=== PATIENT | male | born 1950 | race Caucasian/White ===

== ENCOUNTER → 2016-04-14 | Outpatient (CLI) | payer MEDICARE, BC | LOC: MW.CHUR 10:45 | PROVIDERS: ATTEND Urology | DX: R97.20 Elevated prostate specific antigen [PSA] (principal); R33.9 Retention of urine, unspecified; N42.9 Disorder of prostate, unspecified | CPT/HCPCS: 36415; 81001; 84153; G0463 ==

== ENCOUNTER 2016-05-28 17:04 | Inpatient (IN) | payer MEDICARE, BC ==
[2016-05-28] MEDS ORDERED: Sodium Chloride 0.9% 2.5 ML Syringe FLUSH PRN (17:13)
[2016-05-28] MEDS ORDERED: Alum Hydrox/Mag Hydrox/Simeth 15 ML, Metoclopramide 5 MG, Lidocaine 2% 5 ML PO ONE ×3 (17:13)
[2016-05-28] MEDS ORDERED: Sodium Chloride 0.9% 10 ML Syringe FLUSH PRN (17:13)
[2016-05-28] MEDS ORDERED: Aspirin 81 MG Tab.Chew PO ONE (17:13)
[2016-05-28] MEDS ORDERED: Ketorolac 30 MG/ML SDV IVPUSH ONE (17:13)
[2016-05-28] MEDS ORDERED: Famotidine 20 MG/2 ML SDV IVPUSH ONE (17:13)
--- NOTE | 2016-05-28 17:21 | EDM.PDOC ---
ED HPI DIZZINESS - General Chief Complaint: Syncope Stated Complaint: PASSED OUT Time Seen by Provider: 05/28/16 17:05 Source of Information: Reports: Patient, Family Exam Limitations: Reports: No limitations - History of Present Illness INITIAL COMMENTS - FREE TEXT/NARRATIVE: History of present illness: [65-year-old male with at the bedside give a history of patient with diarrhea for the last 3 days and bouts of sweating. stated that was getting in the bath and had felt dizzy he got on the toilet to have yet another bowel movement and he passed out subsequently vomiting when he did.] Review of systems: As per history of present illness and below otherwise all systems reviewed and negative. Past medical history: As per history of present illness and as reviewed below otherwise noncontributory. Surgical history: As per history of present illness and as reviewed below otherwise noncontributory. Social history: No reported history of drug or alcohol abuse. Family history: As per history of present illness and as reviewed below otherwise noncontributory. Physical exam: HEENT: Atraumatic, normocephalic, pupils reactive, negative for conjunctival pallor or scleral icterus, mucous membranes moist, throat clear, neck supple, nontender, trachea midline. Lungs: Clear to auscultation, breath sounds equal bilaterally, chest nontender. Heart: S1S2, regular, negative for clicks, rubs, or JVD. Abdomen: Soft, nondistended, nontender. Negative for masses or hepatosplenomegaly. Negative for costovertebral tenderness. Pelvis: Stable nontender. Genitourinary: Deferred. Rectal: Deferred. Extremities: Atraumatic, negative for cords or calf pain. Neurovascular unremarkable. Neuro: Awake, alert, oriented. Cranial nerves II through XII unremarkable. Cerebellum unremarkable. Motor and sensory unremarkable throughout. Exam nonfocal. Diagnostics: [CBC, CMP, troponin, EKG, chest x-ray] Therapeutics: [IV,] Impression: [Syncope, GI distress] Plan: [admit to observation telemetry] Definitive disposition and diagnosis as appropriate pending reevaluation and review of above. - Related Data Allergies/ADRs: Allergies Allergy/AdvReac Type Severity Reaction Status Date / Time diazepam [From Valium] Allergy Anxiety Verified 05/28/16 17:05 Home Meds: Home Meds Vitamin E 1,000 units PO DAILY 06/16/13 [History] Aspirin [Lo-Dose Aspirin EC] 05/28/16 [History] Cholecalciferol (Vitamin D3) [Vitamin D3] 05/28/16 [History] Lactobacillus Combination No.4 [Probiotic] 1 each PO 05/28/16 [History] Tamsulosin [Flomax] 05/28/16 [History] Ubidecarenone [COQ-10] 05/28/16 [History] Past Medical History HEENT History: Reports: Impaired vision Cardiovascular History: Reports: High cholesterol, Hypertension, Prior cardiac arrest, Stents Respiratory History: Reports: None Gastrointestinal History: Reports: None Genitourinary History: Reports: Prostate disorder Musculoskeletal History: Reports: Back pain, chronic Neurological History: Reports: None Psychiatric History: Reports: None Endocrine/Metabolic History: Reports: None Hematologic History: Reports: None Immunologic History: Reports: None Dermatologic History: Reports: None - Past Surgical History Head Surgeries/Procedures: Reports: None HEENT Surgical History: Reports: Naso-sinus surgery Neurological Surgical History: Reports: None Musculoskeletal Surgical History: Reports: Other (see below) Other Musculoskeletal Surgeries/Procedures:: back surgery Social & Family History - Family History Family Medical History: Noncontributory HEENT: Reports: None Cardiac: Reports: None Respiratory: Reports: None GI: Reports: None - Tobacco Use Smoking Status *Q: Never Smoker Second Hand Smoke Exposure: No - Caffeine Use Caffeine Use: Reports: Soda - Recreational Drug Use Recreational Drug Use: No ED ROS GENERAL - Review of Systems Review Of Systems: See Below (See history of present illness) ED EXAM, DIZZINESS - Physical Exam Exam: See Below (History of present illness) Course - Vital Signs Last Recorded V/S: Last Vital Signs Temp 36.6 C 05/28/16 17:06 Pulse 76 05/28/16 19:17 Resp 17 05/28/16 19:17 BP 119/80 05/28/16 19:17 Pulse Ox 80 L 05/28/16 19:17 - Orders/Labs/Meds Orders: Active Orders 24 hr Category Date Time Status Cardiac Monitoring [RC] . DIRECTED Care 05/28/16 17:13 Active EKG 12 Lead [EKG Documentation Completion] [RC] STAT Care 05/28/16 17:07 Active Chest 2V [CR] Stat Exams 05/28/16 17:13 Taken Head wo Cont [CT] Stat Exams 05/28/16 18:23 Taken Sodium Chloride 0.9% [Saline Flush] Med 05/28/16 17:13 Active 10 ml FLUSH ASDIRECTED PRN Sodium Chloride 0.9% [Saline Flush] Med 05/28/16 17:13 Active 2.5 ml FLUSH ASDIRECTED PRN Saline Lock Insert [OM.PC] Stat Oth 05/28/16 17:13 Ordered Medication Orders Sodium Chloride (Saline Flush) 10 ml FLUSH ASDIRECTED PRN PRN Reason: Keep Vein Open Last Admin: 05/28/16 17:30 Dose: 10 ml Sodium Chloride (Saline Flush) 2.5 ml FLUSH ASDIRECTED PRN PRN Reason: Keep Vein Open Last Admin: 05/28/16 17:31 Dose: 2.5 ml Labs: Laboratory Tests 05/28/16 05/28/16 05/28/16 Range/Units 17:27 17:27 17:27 WBC 5.27 (4.0-11.0) K/uL RBC 4.98 (4.50-5.90) M/uL Hgb 16.5 (13.0-17.0) g/dL Hct 47.2 (38.0-50.0) % MCV 94.8 (80.0-98.0) fL MCH 33.1 H (27.0-32.0) pg MCHC 35.0 (31.0-37.0) g/dL RDW Std Deviation 44.7 (28.0-62.0) fl RDW Coeff of Alondra 13 (11.0-15.0) % Plt Count 199 (150-400) K/uL MPV 11.30 (7.40-12.00) fL Neut % (Auto) 75.9 (48.0-80.0) % Lymph % (Auto) 11.4 L (16.0-40.0) % [place] % (Auto) 10.2 (0.0-15.0) % Eos % (Auto) 2.1 (0.0-7.0) % Baso % (Auto) 0.4 (0.0-1.5) % Neut # (Auto) 4.0 (1.4-5.7) K/uL Lymph # (Auto) 0.6 (0.6-2.4) K/uL [place] # (Auto) 0.5 (0.0-0.8) K/uL Eos # (Auto) 0.1 (0.0-0.7) K/uL Baso # (Auto) 0.0 (0.0-0.1) K/uL Nucleated RBC % 0.0 /100WBC Nucleated RBCs # 0 K/uL INR 1.07 (0.86-1.11) Sodium 138 (136-146) mmol/L Potassium 4.2 (3.5-5.1) mmol/L Chloride 108 (98-110) mmol/L Carbon Dioxide 19 L (21-31) mmol/L BUN 20 (6.0-23.0) mg/dL Creatinine 1.6 H (0.6-1.5) mg/dL Est Cr Clr Drug Dosing 46.37 mL/min Estimated GFR (MDRD) 43.3 ml/min Glucose 119 H (60-110) mg/dL Calcium 9.8 (8.8-10.8) mg/dL Total Bilirubin 1.3 (0.1-1.5) mg/dL AST 36 (5-40) IU/L ALT 34 (8-54) IU/L Alkaline Phosphatase 49 (40-150) Troponin I (0.0-0.29) NG/ML Total Protein 7.8 (6.0-8.0) g/dL Albumin 4.5 (3.4-4.8) g/dL Globulin 3.3 (2.0-3.5) g/dL Albumin/Globulin Ratio 1.4 (1.3-2.8) Amylase 73 (10-90) U/L Lipase 56 (7-80) U/L Urine Color Urine Appearance Urine pH (5.0-8.0) Ur Specific [place] (1.001-1.035) Urine Protein (NEGATIVE) mg/dL Urine Glucose (UA) (NEGATIVE) mg/dL Urine Ketones (NEGATIVE) mg/dL Urine Occult Blood (NEGATIVE) Urine Nitrite (NEGATIVE) Urine Bilirubin (NEGATIVE) Urine Urobilinogen (<2.0) EU/dL Ur Leukocyte Esterase (NEGATIVE) Urine RBC (0-2/HPF) Urine WBC (0-5/HPF) Ur Epithelial Cells (NONE-FEW) Urine Bacteria (NEGATIVE) 05/28/16 05/28/16 Range/Units 17:27 18:50 WBC (4.0-11.0) K/uL RBC (4.50-5.90) M/uL Hgb (13.0-17.0) g/dL Hct (38.0-50.0) % MCV (80.0-98.0) fL MCH (27.0-32.0) pg MCHC (31.0-37.0) g/dL RDW Std Deviation (28.0-62.0) fl RDW Coeff of Alondra (11.0-15.0) % Plt Count (150-400) K/uL MPV (7.40-12.00) fL Neut % (Auto) (48.0-80.0) % Lymph % (Auto) (16.0-40.0) % [place] % (Auto) (0.0-15.0) % Eos % (Auto) (0.0-7.0) % Baso % (Auto) (0.0-1.5) % Neut # (Auto) (1.4-5.7) K/uL Lymph # (Auto) (0.6-2.4) K/uL [place] # (Auto) (0.0-0.8) K/uL Eos # (Auto) (0.0-0.7) K/uL Baso # (Auto) (0.0-0.1) K/uL Nucleated RBC % /100WBC Nucleated RBCs # K/uL INR (0.86-1.11) Sodium (136-146) mmol/L Potassium (3.5-5.1) mmol/L Chloride (98-110) mmol/L Carbon Dioxide (21-31) mmol/L BUN (6.0-23.0) mg/dL Creatinine (0.6-1.5) mg/dL Est Cr Clr Drug Dosing mL/min Estimated GFR (MDRD) ml/min Glucose (60-110) mg/dL Calcium (8.8-10.8) mg/dL Total Bilirubin (0.1-1.5) mg/dL AST (5-40) IU/L ALT (8-54) IU/L Alkaline Phosphatase (40-150) Troponin I < 0.10 (0.0-0.29) NG/ML Total Protein (6.0-8.0) g/dL Albumin (3.4-4.8) g/dL Globulin (2.0-3.5) g/dL Albumin/Globulin Ratio (1.3-2.8) Amylase (10-90) U/L Lipase (7-80) U/L Urine Color YELLOW Urine Appearance CLEAR Urine pH 6.0 (5.0-8.0) Ur Specific [place] 1.015 (1.001-1.035) Urine Protein NEGATIVE (NEGATIVE) mg/dL Urine Glucose (UA) NEGATIVE (NEGATIVE) mg/dL Urine Ketones NEGATIVE (NEGATIVE) mg/dL Urine Occult Blood SMALL H (NEGATIVE) Urine Nitrite NEGATIVE (NEGATIVE) Urine Bilirubin NEGATIVE (NEGATIVE) Urine Urobilinogen 0.2 (<2.0) EU/dL Ur Leukocyte Esterase TRACE (NEGATIVE) Urine RBC 1-3 (0-2/HPF) Urine WBC 2-3 (0-5/HPF) Ur Epithelial Cells FEW (NONE-FEW) Urine Bacteria FEW (NEGATIVE) Meds: Medications Generic Name Dose Route Start Last Admin Trade Name [place] PRN Reason Stop Dose Admin Sodium Chloride 10 ml 05/28/16 17:13 05/28/16 17:30 Saline Flush FLUSH 10 ml ASDIRECTED PRN Administration Keep Vein Open Sodium Chloride 2.5 ml 05/28/16 17:13 05/28/16 17:31 Saline Flush FLUSH 2.5 ml ASDIRECTED PRN Administration Keep Vein Open Discontinued Medications Generic Name Dose Route Start Last Admin Trade Name Aramis PRN Reason Stop Dose Admin Aspirin 324 mg 05/28/16 17:13 05/28/16 17:26 Aspirin PO 05/28/16 17:14 243 mg ONETIME ONE Administration Al Hydroxide/Mg Hydroxide 15 0 ml 05/28/16 17:13 05/28/16 17:26 ml/ Metoclopramide HCl 5 mg/ PO 05/28/16 17:14 1 each Lidocaine HCl 5 ml ONETIME ONE Administration Famotidine 20 mg 05/28/16 17:13 05/28/16 17:28 Pepcid IVPUSH 05/28/16 17:14 20 mg ONETIME ONE Administration Sodium Chloride 1,000 mls @ 999 mls/hr 05/28/16 17:36 05/28/16 17:39 Normal Saline IV 05/28/16 18:36 999 mls/hr .Bolus ONE Administration Ketorolac Tromethamine 30 mg 05/28/16 17:13 05/28/16 17:26 Toradol IVPUSH 05/28/16 17:14 30 mg ONETIME ONE Administration Simethicone 160 mg 05/28/16 19:53 Simethicone PO 05/28/16 19:54 ONETIME ONE Departure - Departure Time of Disposition: 20:10 Disposition: Admitted As Inpatient 64 Condition: good Clinical Impression: Syncope Forms: ED Department Discharge - My Orders Last 24 Hours: My Active Orders 05/28/16 17:07 EKG 12 Lead [EKG Documentation Completion] [RC] STAT 05/28/16 17:13 Cardiac Monitoring [RC] . DIRECTED Chest 2V [CR] Stat Sodium Chloride 0.9% [Saline Flush] 10 ml FLUSH ASDIRECTED PRN Sodium Chloride 0.9% [Saline Flush] 2.5 ml FLUSH ASDIRECTED PRN Saline Lock Insert [OM.PC] Stat 05/28/16 18:23 Head wo Cont [CT] Stat - Assessment/Plan Last 24 Hours: My Active Orders 05/28/16 17:07 EKG 12 Lead [EKG Documentation Completion] [RC] STAT 05/28/16 17:13 Cardiac Monitoring [RC] . DIRECTED Chest 2V [CR] Stat Sodium Chloride 0.9% [Saline Flush] 10 ml FLUSH ASDIRECTED PRN Sodium Chloride 0.9% [Saline Flush] 2.5 ml FLUSH ASDIRECTED PRN Saline Lock Insert [OM.PC] Stat 05/28/16 18:23 Head wo Cont [CT] Stat
[2016-05-28] MEDS ORDERED: Sodium Chloride 0.9% 1,000 ML IV ONE (17:36)
[2016-05-28] MEDS ORDERED: Simethicone 80 MG Tab.Chew PO ONE (19:53)
--- NOTE | 2016-05-28 20:39 | PCM.HP ---
H&P History of Present Illness - General Date of Service: 05/28/16 Admit Problem/Dx: Admission Diagnosis/Problem Admission Diagnosis/Problem Syncope Source of Information: Patient, Provider, RN - History of Present Illness Initial Comments - Free Text/Narative: This man presented to the emergency department today. When he was at home he was on the toilet his heard a crash. She went in and he had fainted and he was on the floor. He does not remember fainting he just Bement is being on the toilet and had been on before. He does not think he hit his head. He does not have a headache. He has no obvious or apparent are suspected significant injury. He is had a watery stools all day. He has had more than 10 bowel movements today. He states sometimes he'll have bowel movements and intervals of 15 or 20 minutes. He has lower abdominal cramping. He had some chills. His noted his temperature was about 100 Fahrenheit. No respiratory complaints. No chest pain. He was seen in the emergency department and recommended for admission to the hospital. - Related Data Allergies/Adverse Reactions: Allergies Allergy/AdvReac Type Severity Reaction Status Date / Time diazepam [From Valium] Allergy Anxiety Verified 05/28/16 17:05 Home Medications: Home Meds Vitamin E 1,000 units PO DAILY 06/16/13 [History] Aspirin [Lo-Dose Aspirin EC] 05/28/16 [History] Cholecalciferol (Vitamin D3) [Vitamin D3] 05/28/16 [History] Lactobacillus Combination No.4 [Probiotic] 1 each PO 05/28/16 [History] Tamsulosin [Flomax] 05/28/16 [History] Ubidecarenone [COQ-10] 05/28/16 [History] Past Medical History HEENT History: Reports: Impaired vision Cardiovascular History: Reports: CAD, MD, Prior cardiac arrest, Stents Respiratory History: Reports: None. Denies: COPD Gastrointestinal History: Reports: None. Denies: Cirrhosis Genitourinary History: Reports: Prostate disorder Musculoskeletal History: Reports: Back pain, chronic Neurological History: Reports: None Psychiatric History: Reports: None Endocrine/Metabolic History: Reports: None. Denies: Norvell's disease, Diabetes , type II Hematologic History: Reports: None Immunologic History: Reports: None Oncologic (Cancer) History: Reports: None Dermatologic History: Reports: None - Past Surgical History Head Surgeries/Procedures: Reports: None HEENT Surgical History: Reports: Naso-sinus surgery Neurological Surgical History: Reports: None Musculoskeletal Surgical History: Reports: Other (see below) Other Musculoskeletal Surgeries/Procedures:: back surgery Social & Family History - Family History Family Medical History: Noncontributory HEENT: Reports: None Cardiac: Reports: None Respiratory: Reports: None GI: Reports: None - Tobacco Use Smoking Status *Q: Never Smoker Second Hand Smoke Exposure: No - Caffeine Use Caffeine Use: Reports: Soda - Alcohol Use Alcohol Use Comment: He drinks about 2 times per month. He never has more than 3 drinks per day. - Recreational Drug Use Recreational Drug Use: No H&P Review of Systems - Review of Systems: Review Of Systems: See Below General: Reports: fever, chills Pulmonary: Denies: Shortness of Breath, Cough, Sputum Cardiovascular: Denies: chest pain, palpitations Gastrointestinal: Reports: Abdominal pain, Decreased appetite, Flatus. Denies: Black stool, Bloody stool, Hematemesis, Nausea Genitourinary: Denies: dysuria, frequency, burning, pain, hematuria, penile discharge Skin: Denies: cyanosis Psychiatric: Denies: agitation Exam - Exam Exam: See Below - Vital Signs Vital Signs: Last Vital Signs Temp 97.9 F 05/28/16 17:06 Pulse 76 05/28/16 19:17 Resp 17 05/28/16 19:17 BP 119/80 05/28/16 19:17 Pulse Ox 80 L 05/28/16 19:17 Weight: 85.9 kg - Exam General: alert, oriented HEENT: Conjunctiva clear Neck: supple, trachea midline, other (No C-spine pain or pain with motion). No : JVD Lungs: Clear to auscultation, Normal respiratory effort. No: Crackles, Rales, Rhonchi Cardiovascular: regular rate, regular rhythm, normal S1, normal S2. No: systolic murmur, diastolic murmur Abdomen: normal bowel sounds, soft, tenderness (Mild periumbilical tenderness no rebound tenderness) (Male) Exam: Deferred Rectal (Males) Exam: Deferred Extremities: other ([place] refill in toes of both feet equals about 4 seconds.) . No: edema Neurological: cranial nerves intact, normal speech Neuro Extensive - Motor, Sensory, Reflexes: CN II-XII intact Psychiatric: alert. No: agitated - Patient Data Lab Results last 24 hrs: Laboratory Results - last 24 hr 05/28/16 05/28/16 05/28/16 Range/Units 17:27 17:27 17:27 WBC 5.27 (4.0-11.0) K/uL RBC 4.98 (4.50-5.90) M/uL Hgb 16.5 (13.0-17.0) g/dL Hct 47.2 (38.0-50.0) % MCV 94.8 (80.0-98.0) fL MCH 33.1 H (27.0-32.0) pg MCHC 35.0 (31.0-37.0) g/dL RDW Std Deviation 44.7 (28.0-62.0) fl RDW Coeff of Alondra 13 (11.0-15.0) % Plt Count 199 (150-400) K/uL MPV 11.30 (7.40-12.00) fL Neut % (Auto) 75.9 (48.0-80.0) % Lymph % (Auto) 11.4 L (16.0-40.0) % [place] % (Auto) 10.2 (0.0-15.0) % Eos % (Auto) 2.1 (0.0-7.0) % Baso % (Auto) 0.4 (0.0-1.5) % Neut # (Auto) 4.0 (1.4-5.7) K/uL Lymph # (Auto) 0.6 (0.6-2.4) K/uL [place] # (Auto) 0.5 (0.0-0.8) K/uL Eos # (Auto) 0.1 (0.0-0.7) K/uL Baso # (Auto) 0.0 (0.0-0.1) K/uL Nucleated RBC % 0.0 /100WBC Nucleated RBCs # 0 K/uL INR 1.07 (0.86-1.11) Sodium 138 (136-146) mmol/L Potassium 4.2 (3.5-5.1) mmol/L Chloride 108 (98-110) mmol/L Carbon Dioxide 19 L (21-31) mmol/L BUN 20 (6.0-23.0) mg/dL Creatinine 1.6 H (0.6-1.5) mg/dL Est Cr Clr Drug Dosing 46.37 mL/min Estimated GFR (MDRD) 43.3 ml/min Glucose 119 H (60-110) mg/dL Calcium 9.8 (8.8-10.8) mg/dL Total Bilirubin 1.3 (0.1-1.5) mg/dL AST 36 (5-40) IU/L ALT 34 (8-54) IU/L Alkaline Phosphatase 49 (40-150) Troponin I (0.0-0.29) NG/ML Total Protein 7.8 (6.0-8.0) g/dL Albumin 4.5 (3.4-4.8) g/dL Globulin 3.3 (2.0-3.5) g/dL Albumin/Globulin Ratio 1.4 (1.3-2.8) Amylase 73 (10-90) U/L Lipase 56 (7-80) U/L Urine Color Urine Appearance Urine pH (5.0-8.0) Ur Specific [place] (1.001-1.035) Urine Protein (NEGATIVE) mg/dL Urine Glucose (UA) (NEGATIVE) mg/dL Urine Ketones (NEGATIVE) mg/dL Urine Occult Blood (NEGATIVE) Urine Nitrite (NEGATIVE) Urine Bilirubin (NEGATIVE) Urine Urobilinogen (<2.0) EU/dL Ur Leukocyte Esterase (NEGATIVE) Urine RBC (0-2/HPF) Urine WBC (0-5/HPF) Ur Epithelial Cells (NONE-FEW) Urine Bacteria (NEGATIVE) 05/28/16 05/28/16 Range/Units 17:27 18:50 WBC (4.0-11.0) K/uL RBC (4.50-5.90) M/uL Hgb (13.0-17.0) g/dL Hct (38.0-50.0) % MCV (80.0-98.0) fL MCH (27.0-32.0) pg MCHC (31.0-37.0) g/dL RDW Std Deviation (28.0-62.0) fl RDW Coeff of Alondra (11.0-15.0) % Plt Count (150-400) K/uL MPV (7.40-12.00) fL Neut % (Auto) (48.0-80.0) % Lymph % (Auto) (16.0-40.0) % [place] % (Auto) (0.0-15.0) % Eos % (Auto) (0.0-7.0) % Baso % (Auto) (0.0-1.5) % Neut # (Auto) (1.4-5.7) K/uL Lymph # (Auto) (0.6-2.4) K/uL [place] # (Auto) (0.0-0.8) K/uL Eos # (Auto) (0.0-0.7) K/uL Baso # (Auto) (0.0-0.1) K/uL Nucleated RBC % /100WBC Nucleated RBCs # K/uL INR (0.86-1.11) Sodium (136-146) mmol/L Potassium (3.5-5.1) mmol/L Chloride (98-110) mmol/L Carbon Dioxide (21-31) mmol/L BUN (6.0-23.0) mg/dL Creatinine (0.6-1.5) mg/dL Est Cr Clr Drug Dosing mL/min Estimated GFR (MDRD) ml/min Glucose (60-110) mg/dL Calcium (8.8-10.8) mg/dL Total Bilirubin (0.1-1.5) mg/dL AST (5-40) IU/L ALT (8-54) IU/L Alkaline Phosphatase (40-150) Troponin I < 0.10 (0.0-0.29) NG/ML Total Protein (6.0-8.0) g/dL Albumin (3.4-4.8) g/dL Globulin (2.0-3.5) g/dL Albumin/Globulin Ratio (1.3-2.8) Amylase (10-90) U/L Lipase (7-80) U/L Urine Color YELLOW Urine Appearance CLEAR Urine pH 6.0 (5.0-8.0) Ur Specific [place] 1.015 (1.001-1.035) Urine Protein NEGATIVE (NEGATIVE) mg/dL Urine Glucose (UA) NEGATIVE (NEGATIVE) mg/dL Urine Ketones NEGATIVE (NEGATIVE) mg/dL Urine Occult Blood SMALL H (NEGATIVE) Urine Nitrite NEGATIVE (NEGATIVE) Urine Bilirubin NEGATIVE (NEGATIVE) Urine Urobilinogen 0.2 (<2.0) EU/dL Ur Leukocyte Esterase TRACE (NEGATIVE) Urine RBC 1-3 (0-2/HPF) Urine WBC 2-3 (0-5/HPF) Ur Epithelial Cells FEW (NONE-FEW) Urine Bacteria FEW (NEGATIVE) Result Diagrams: 05/28/16 17:27 05/28/16 17:27 *Q Meaningful Use (ADM) - VTE *Q VTE Criteria *Q: - Stroke *Q Stroke Criteria *Q: - AMI *Q AMI Criteria *Q: - Problem List (1) Hypovolemic shock SNOMED Code(s): 62501453 ICD Code: R57.1 - HYPOVOLEMIC SHOCK Status: Acute Current Visit: Yes (2) Syncope SNOMED Code(s): 575331534 ICD Code: R55 - SYNCOPE AND COLLAPSE Status: Acute Current Visit: Yes Problem List Initiated/Reviewed/Updated: Yes Orders Last 24hrs: Active Orders 24 hr Category Date Time Status Patient Status [ADT] Stat ADT 05/28/16 20:10 Active Cardiac Monitoring [RC] . DIRECTED Care 05/28/16 17:13 Active EKG 12 Lead [EKG Documentation Completion] [RC] STAT Care 05/28/16 17:07 Active Chest 2V [CR] Stat Exams 05/28/16 17:13 Taken Head wo Cont [CT] Stat Exams 05/28/16 18:23 Taken CULTURE URINE [RM] Stat Lab 05/28/16 20:30 Uncollected Sodium Chloride 0.9% [Saline Flush] Med 05/28/16 17:13 Active 10 ml FLUSH ASDIRECTED PRN Sodium Chloride 0.9% [Saline Flush] Med 05/28/16 17:13 Active 2.5 ml FLUSH ASDIRECTED PRN Saline Lock Insert [OM.PC] Stat Oth 05/28/16 17:13 Ordered Medication Orders Sodium Chloride (Saline Flush) 10 ml FLUSH ASDIRECTED PRN PRN Reason: Keep Vein Open Last Admin: 05/28/16 17:30 Dose: 10 ml Sodium Chloride (Saline Flush) 2.5 ml FLUSH ASDIRECTED PRN PRN Reason: Keep Vein Open Last Admin: 05/28/16 17:31 Dose: 2.5 ml Assessment/Plan Comment:: aggressive IVF hydration monitor lab close monitoring. I believe that he has hypovolemic shock as evidenced by impaired capillary refill in his toes. See orders.
[2016-05-28] MEDS ORDERED: Ondansetron 4 MG/2 ML SDV IVPUSH PRN (20:41)
[2016-05-28] MEDS ORDERED: Morphine 4 MG/ML Syringe IVPUSH PRN (20:41)
[2016-05-28] MEDS ORDERED: Temazepam 15 MG Cap PO PRN (20:41)
[2016-05-28] MEDS: Sodium Chloride 0.9% 1,000 ML IV SCH (21:23)
[2016-05-29] MEDS: Sodium Chloride 0.9% 1,000 ML IV SCH ×4 (02:15→19:34)
[2016-05-29] MEDS: Azithromycin 500 MG in Sodium Chloride 0.9% 250 ML IV SCH (02:22)
[2016-05-29] MEDS: Acetaminophen 325 MG Tab PO PRN ×4 (03:05→19:34)
[2016-05-29] MEDS ORDERED: Famotidine 20 MG/2 ML SDV IVPUSH SCH ×2 (09:00→09:25)
[2016-05-29] MEDS ORDERED: Sodium Chloride 0.9% 1,000 ML IV SCH (09:30)
[2016-05-29] MEDS: Famotidine 20 MG/2 ML SDV IVPUSH SCH ×2 (09:46→21:08)
--- NOTE | 2016-05-29 09:48 | PCM.PN ---
- General Info Date of Service: 05/29/16 Admission Dx/Problem (Free Text): Admission Diagnosis/Problem Admission Diagnosis/Problem Syncope Subjective Update: Patient continues to have frequent BM's. He has no pain with his bowel movements and there is no blood noted. He is beginning to to have some lower abdominal cramping which was present yesterday as well. Morphine is available for pain relief. Stool is positive for Campylobacter. He is on Azithromycin 500mg IV daily. He denies any chest pain, N/V, shortness of breath. Functional Status: Reports: pain controlled, ambulating, urinating - Review of Systems General: Reports: Weakness HEENT: Reports: no symptoms Pulmonary: Reports: no symptoms Cardiovascular: Reports: No Symptoms Gastrointestinal: Reports: Abdominal pain (lower), Diarrhea. Denies: Nausea, Vomiting Genitourinary: Reports: no symptoms Musculoskeletal: Reports: no symptoms Skin: Reports: no symptoms Neurological: Reports: No Symptoms Psychiatric: Reports: no symptoms - Patient Data Vitals - most recent: Last Vital Signs Temp 100.2 F 05/29/16 06:00 Pulse 76 05/28/16 19:17 Resp 19 05/29/16 09:00 BP 143/86 H 05/29/16 09:00 Pulse Ox 100 05/29/16 09:00 Weight - most recent: 183 lb 13.848 oz I&O - last 24 hours: Intake & Output 05/28/16 05/29/16 05/29/16 22:59 06:59 14:59 Intake Total 1700 Output Total 475 Balance 1225 Lab Results last 24 hrs: Laboratory Results - last 24 hr 05/29/16 05/29/16 05/29/16 Range/Units 02:17 02:17 02:17 WBC 5.18 (4.0-11.0) K/uL RBC 4.57 (4.50-5.90) M/uL Hgb 15.0 (13.0-17.0) g/dL Hct 43.3 (38.0-50.0) % MCV 94.7 (80.0-98.0) fL MCH 32.8 H (27.0-32.0) pg MCHC 34.6 (31.0-37.0) g/dL RDW Std Deviation 43.0 (28.0-62.0) fl RDW Coeff of Alondra 13 (11.0-15.0) % Plt Count 189 (150-400) K/uL MPV 11.30 (7.40-12.00) fL Add Manual Diff YES Neutrophils % (Manual) 70 (48.0-80.0) % Band Neutrophils % 5 % Lymphocytes % (Manual) 9 L (16.0-40.0) % Monocytes % (Manual) 15 (0.0-15.0) % Basophils % (Manual) 1 (0.0-1.5) % Absolute Seg Neuts 3.6 Band Neutrophils # 0.3 Lymphocytes # (Manual) 0.5 Monocytes # (Manual) 0.8 Basophils # (Manual) 0 Sodium 138 (136-146) mmol/L Potassium 4.5 (3.5-5.1) mmol/L Chloride 111 H (98-110) mmol/L Carbon Dioxide 19 L (21-31) mmol/L BUN 23 (6.0-23.0) mg/dL Creatinine 1.4 (0.6-1.5) mg/dL Est Cr Clr Drug Dosing 52.87 mL/min Estimated GFR (MDRD) 50.5 ml/min Glucose 98 (60-110) mg/dL Calcium 8.9 (8.8-10.8) mg/dL Magnesium 1.9 (1.5-2.3) mEq/L Total Bilirubin 0.9 (0.1-1.5) mg/dL AST 37 (5-40) IU/L ALT 34 (8-54) IU/L Alkaline Phosphatase 42 (40-150) Troponin I < 0.10 (0.0-0.29) NG/ML Total Protein 6.8 (6.0-8.0) g/dL Albumin 4.0 (3.4-4.8) g/dL Globulin 2.8 (2.0-3.5) g/dL Albumin/Globulin Ratio 1.4 (1.3-2.8) Zen Results last 24 hrs: Microbiology 05/28/16 23:50 Clostridium difficile Toxin A&B (M) - Final Stool / Feces Negative for C.Diff Toxin/AG 05/28/16 23:50 Campylobacter Antigen Assay - Final Stool / Feces Positive Campylobacter Ag 05/28/16 23:50 Stool for WBCs - Final Stool / Feces POSITIVE FOR WBC'S Med Orders - Current: Current Medications Acetaminophen (Tylenol) 650 mg PO Q4H PRN PRN Reason: Pain (Mild 1-3)/fever Last Admin: 05/29/16 09:21 Dose: 650 mg Famotidine (Pepcid) 10 mg IVPUSH BID [facility] Sodium Chloride (Normal Saline) 1,000 mls @ 200 mls/hr IV ASDIRECTED [facility] Last Admin: 05/29/16 08:21 Dose: 200 mls/hr Azithromycin 500 mg/ Sodium (Chloride) 250 mls @ 250 mls/hr IV Q24H [facility] Stop: 05/31/16 03:14 Last Admin: 05/29/16 02:22 Dose: 250 mls/hr Sodium Chloride (Normal Saline) 1,000 mls @ 999 mls/hr IV ASDIRECTED [facility] Morphine Sulfate (Morphine) 4 mg IVPUSH Q1H PRN PRN Reason: Pain (severe 7-10) Stop: 05/29/16 20:43 Ondansetron HCl (Zofran) 4 mg IVPUSH Q4H PRN PRN Reason: Nausea Sodium Chloride (Saline Flush) 10 ml FLUSH ASDIRECTED PRN PRN Reason: Keep Vein Open Last Admin: 05/28/16 17:30 Dose: 10 ml Sodium Chloride (Saline Flush) 2.5 ml FLUSH ASDIRECTED PRN PRN Reason: Keep Vein Open Last Admin: 05/28/16 17:31 Dose: 2.5 ml Tamsulosin HCl (Flomax) 0.4 mg PO PCBREAKFAST [facility] Temazepam (Restoril) 15 mg PO BEDTIME PRN PRN Reason: Sleep Discontinued Medications Aspirin (Aspirin) 324 mg PO ONETIME ONE Stop: 05/28/16 17:14 Last Admin: 05/28/16 17:26 Dose: 243 mg Al Hydroxide/Mg Hydroxide 15 ml/ Metoclopramide HCl 5 mg/Lidocaine HCl 5 ml 0 ml PO ONETIME ONE Stop: 05/28/16 17:14 Last Admin: 05/28/16 17:26 Dose: 1 each Famotidine (Pepcid) 20 mg IVPUSH ONETIME ONE Stop: 05/28/16 17:14 Last Admin: 05/28/16 17:28 Dose: 20 mg Famotidine (Pepcid) 20 mg IVPUSH BID [facility] Famotidine (Pepcid) 10 mg IVPUSH BID [facility] Sodium Chloride (Normal Saline) 1,000 mls @ 999 mls/hr IV .Bolus ONE Stop: 05/28/16 18:36 Last Admin: 05/28/16 17:39 Dose: 999 mls/hr Ketorolac Tromethamine (Toradol) 30 mg IVPUSH ONETIME ONE Stop: 05/28/16 17:14 Last Admin: 05/28/16 17:26 Dose: 30 mg Simethicone (Simethicone) 160 mg PO ONETIME ONE Stop: 05/28/16 19:54 Last Admin: 05/28/16 20:24 Dose: 160 mg - Exam Quality Assessment: DVT prophylaxis (SCD's) General: alert, oriented, cooperative, no acute distress Neck: supple Lungs: Clear to auscultation, Normal respiratory effort Cardiovascular: Regular Rate, Regular Rhythm Abdomen: bowel sounds present, soft, no tenderness, no distension Extremities: no edema, no calf tenderness Peripheral Pulses: 2+: radial (L), radial (R) Skin: warm, dry, intact, other (slow capillary refill) Neurological: no new focal deficit Psy/Mental Status: alert, normal affect, normal mood - Problem List & Annotations (1) Campylobacter diarrhea SNOMED Code(s): 17577140 Code(s): A04.5 - CAMPYLOBACTER ENTERITIS Status: Acute Current Visit: Yes (2) Syncope SNOMED Code(s): 264463378 Code(s): R55 - SYNCOPE AND COLLAPSE Status: Acute Current Visit: Yes - Problem List Review Problem List Initiated/Reviewed/Updated: Yes - My Orders Last 24 Hours: My Active Orders 05/29/16 09:30 Sodium Chloride 0.9% [Normal Saline] 1,000 ml IV ASDIRECTED 05/29/16 09:45 Famotidine [Pepcid] 10 mg IVPUSH BID 05/29/16 10:00 Tamsulosin [Flomax] 0.4 mg PO PCBREAKFAST - Plan Plan:: 1. Diarrhea secondary to Campylobacter: -Continue azithromycin 500mg IV daily -Pepcid 10mg BID -NS @ 200cc/hr -will receive a 1L NS bolus today -Morphine available for pain relief. -clear liquid diet Disposition: 1-2 days pending improvement
--- NOTE | 2016-05-29 09:56 | CR ---
EXAM DATE: 05/28/16 PATIENT'S AGE: 65 Patient: KARTHIKEYAN ANN Facility: [place], [place] Site . Site : 1950 Study: XRay Chest [id number]/19/2017 6:01:56 PM Ordering Physician: Doctor Sy Final Report: INDICATIONS: Syncopal episode. TECHNIQUE: Chest 2 view. COMPARISON: Chest radiograph April 11, 2010. FINDINGS: No pneumothorax or pleural effusion. Lungs are clear. Calcified mediastinal nodes consistent with prior granulomatous disease as before. The cardiac and mediastinal contours are otherwise within normal limits. Upper abdomen and osseous structures show no acute abnormality. IMPRESSION: No acute cardiopulmonary disease. Dictated by Kin Rucker MD @ 05/28/2016 6:05:28 PM Dictated by: Kin Rucker MD @ 05/28/2016 18:05:42 (Electronic Signature) Report Signed by Proxy and Original Signed Document filed in the Medical Record. [place]
--- NOTE | 2016-05-29 09:59 | CT ---
EXAM DATE: 05/28/16 PATIENT'S AGE: 65 Patient: KARTHIKEYAN ANN Facility: [place], [place] Site . Site : 1950 Study: CT Head [id number]/19/2017 7:25:05 PM Ordering Physician: Doctor Sy Final Report: INDICATIONS: Syncope. Hit head. Recent sinus pressure. TECHNIQUE: CT head without contrast. COMPARISON: None FINDINGS: No mass effect or midline shift. No hydrocephalus. No CT evidence of acute hemorrhage or infarction. No abnormal extra-axial fluid collection. Bone windows show no acute abnormality. Visualized paranasal sinuses and orbits are unremarkable. IMPRESSION: No acute intracranial abnormality. Dictated by Kin Rucker MD @ 05/28/2016 7:48:51 PM Dictated by: Kin Rucker MD @ 05/28/2016 19:48:59 (Electronic Signature) Report Signed by Proxy and Original Signed Document filed in the Medical Record. [facility]
[2016-05-29] MEDS ORDERED: Tamsulosin 0.4 MG Cap.ER PO SCH (10:00)
[2016-05-29] MEDS ORDERED: Morphine 4 MG/ML Syringe IVPUSH PRN (14:21)
[2016-05-29] MEDS ORDERED: Alum Hydrox/Mag Hydrox/Simeth 15 ML, Metoclopramide 5 MG, Lidocaine 2% 5 ML PO ONE ×3 (14:23)
[2016-05-29] MEDS ORDERED: Metoprolol Tartrate 5 MG/5 ML SDV IVPUSH PRN (14:24)
[2016-05-29] MEDS: Fluticasone Propionate Nasal Spray 16 GM Bottle NASBOTH SCH ×2 (14:30→21:09)
[2016-05-29] MEDS: Simethicone 80 MG Tab.Chew PO PRN ×3 (14:30→22:00)
[2016-05-29] MEDS: Loperamide 2 MG Cap PO PRN ×2 (21:59→23:24)
[2016-05-30] MEDS: Sodium Chloride 0.9% 1,000 ML IV SCH ×4 (00:37→18:07)
[2016-05-30] MEDS: Azithromycin 500 MG in Sodium Chloride 0.9% 250 ML IV SCH (02:06)
[2016-05-30] MEDS: Simethicone 80 MG Tab.Chew PO PRN ×2 (02:06→14:49)
[2016-05-30] MEDS: Loperamide 2 MG Cap PO PRN ×3 (02:06→20:30)
[2016-05-30] MEDS: Acetaminophen 325 MG Tab PO PRN ×3 (05:06→22:56)
[2016-05-30 05:10] LABS: CHLORIDE,CL 114 mmol/L (98-110); SODIUM,NA 137 mmol/L (136-146)
[2016-05-30] MEDS: Famotidine 20 MG/2 ML SDV IVPUSH SCH ×2 (08:39→20:28)
[2016-05-30] MEDS: Aspirin 81 MG Tab.EC PO SCH (08:39)
[2016-05-30] MEDS: Calcium Citrate 950 MG Tab PO SCH (08:39)
[2016-05-30] MEDS: Fluticasone Propionate Nasal Spray 16 GM Bottle NASBOTH SCH ×2 (08:44→20:33)
[2016-05-30] MEDS ORDERED: Sodium Chloride 0.9% 1,000 ML IV ONE (08:46)
--- NOTE | 2016-05-30 09:31 | PCM.PN ---
- General Info Date of Service: 05/30/16 Admission Dx/Problem (Free Text): Admission Diagnosis/Problem Admission Diagnosis/Problem Syncope Subjective Update: Patient is feeling better this morning. He's had some lower abdominal cramping but this is relieved with simethicone every 4 hours as needed. He did have 9 loose stools yesterday without any blood. He was given Imodium and frequency of his stools has decreased. He has no pain with defecation. Patient did have a fever this morning but got Tylenol which resolved his fever. He is tolerating oral intake and does not complain of any nausea or vomiting. His diet will be advanced as tolerated from clear liquids. He continues on normal saline at 200 cc/hour. He also continues on azithromycin 500 mg IV daily. Patient denies any other acute concerns including headache, dizziness, chest pain, palpitations, shortness of breath, wheezing, cough. Functional Status: Reports: pain controlled, tolerating diet, ambulating, urinating - Review of Systems General: Reports: Weakness, Fatigue HEENT: Reports: no symptoms Pulmonary: Reports: no symptoms Cardiovascular: Reports: No Symptoms Gastrointestinal: Reports: Abdominal pain (Lower portion of the abdomen, improving.), Diarrhea (Less frequent). Denies: Nausea, Vomiting Genitourinary: Reports: no symptoms Musculoskeletal: Reports: no symptoms Skin: Reports: no symptoms Neurological: Reports: No Symptoms Psychiatric: Reports: no symptoms - Patient Data Vitals - most recent: Last Vital Signs Temp 99.9 F 05/30/16 08:00 Pulse 74 05/30/16 07:00 Resp 15 05/30/16 08:00 BP 113/69 05/30/16 08:00 Pulse Ox 96 05/30/16 08:00 Weight - most recent: 183 lb 13.848 oz I&O - last 24 hours: Intake & Output 05/29/16 05/30/16 05/30/16 22:59 06:59 14:59 Intake Total 2300 3350 Output Total 225 1595 Balance 2075 1755 Lab Results last 24 hrs: Laboratory Results - last 24 hr 05/30/16 05/30/16 Range/Units 04:48 04:48 WBC 7.37 (4.0-11.0) K/uL RBC 4.02 L (4.50-5.90) M/uL Hgb 13.0 (13.0-17.0) g/dL Hct 38.5 (38.0-50.0) % MCV 95.8 (80.0-98.0) fL MCH 32.3 H (27.0-32.0) pg MCHC 33.8 (31.0-37.0) g/dL RDW Std Deviation 46.3 (28.0-62.0) fl RDW Coeff of Alondra 13 (11.0-15.0) % Plt Count 142 L (150-400) K/uL MPV 11.10 (7.40-12.00) fL Neut % (Auto) 67.1 (48.0-80.0) % Lymph % (Auto) 21.7 (16.0-40.0) % [place] % (Auto) 11.0 (0.0-15.0) % Eos % (Auto) 0.1 (0.0-7.0) % Baso % (Auto) 0.1 (0.0-1.5) % Neut # (Auto) 4.9 (1.4-5.7) K/uL Lymph # (Auto) 1.6 (0.6-2.4) K/uL [place] # (Auto) 0.8 (0.0-0.8) K/uL Eos # (Auto) 0.0 (0.0-0.7) K/uL Baso # (Auto) 0.0 (0.0-0.1) K/uL Nucleated RBC % 0.0 /100WBC Nucleated RBCs # 0 K/uL Sodium 137 (136-146) mmol/L Potassium 3.8 (3.5-5.1) mmol/L Chloride 114 H (98-110) mmol/L Carbon Dioxide 16 L (21-31) mmol/L BUN 11 (6.0-23.0) mg/dL Creatinine 1.0 (0.6-1.5) mg/dL Est Cr Clr Drug Dosing 74.01 mL/min Estimated GFR (MDRD) > 60.0 ml/min Glucose 81 (60-110) mg/dL Calcium 7.3 L (8.8-10.8) mg/dL Magnesium 1.6 (1.5-2.3) mEq/L Total Bilirubin 0.6 (0.1-1.5) mg/dL AST 29 (5-40) IU/L ALT 25 (8-54) IU/L Alkaline Phosphatase 32 L (40-150) Total Protein 5.4 L (6.0-8.0) g/dL Albumin 3.3 L (3.4-4.8) g/dL Globulin 2.1 (2.0-3.5) g/dL Albumin/Globulin Ratio 1.6 (1.3-2.8) Zen Results last 24 hrs: Microbiology 05/28/16 23:50 Campylobacter Antigen Assay - Final Stool / Feces Positive Campylobacter Ag - Final NEGATIVE FOR SHIGA TOXIN 1 - Final NEGATIVE FOR SHIGA TOXIN 2 Med Orders - Current: Current Medications Acetaminophen (Tylenol) 650 mg PO Q4H PRN PRN Reason: Pain (Mild 1-3)/fever Last Admin: 05/30/16 05:06 Dose: 650 mg Aspirin (Halfprin) 81 mg PO DAILY [facility] Last Admin: 05/30/16 08:39 Dose: 81 mg Calcium Citrate (Calcitrate) 950 mg PO DAILY [facility] Last Admin: 05/30/16 08:39 Dose: 950 mg Famotidine (Pepcid) 10 mg IVPUSH BID [facility] Last Admin: 05/30/16 08:39 Dose: 10 mg Fluticasone Propionate (Flonase) 1 gm NASBOTH BID [facility] Last Admin: 05/30/16 08:44 Dose: 1 spray Sodium Chloride (Normal Saline) 1,000 mls @ 200 mls/hr IV ASDIRECTED [facility] Last Admin: 05/30/16 06:15 Dose: 200 mls/hr Azithromycin 500 mg/ Sodium (Chloride) 250 mls @ 250 mls/hr IV Q24H [facility] Stop: 05/31/16 03:14 Last Admin: 05/30/16 02:06 Dose: 250 mls/hr Sodium Chloride (Normal Saline) 1,000 mls @ 999 mls/hr IV ASDIRECTED [facility] Last Admin: 05/29/16 09:45 Dose: 999 mls/hr Sodium Chloride (Normal Saline) 1,000 mls @ 999 mls/hr IV .Bolus ONE Stop: 05/30/16 09:46 Last Admin: 05/30/16 09:00 Dose: 999 mls/hr Loperamide HCl (Imodium) 2 mg PO ASDIRECTED PRN PRN Reason: Diarrhea Last Admin: 05/30/16 02:06 Dose: 2 mg Metoprolol Tartrate (Lopressor) 2.5 mg IVPUSH Q4H PRN PRN Reason: Hypertension Ondansetron HCl (Zofran) 4 mg IVPUSH Q4H PRN PRN Reason: Nausea Simethicone (Simethicone) 80 mg PO Q4H PRN PRN Reason: Gas Last Admin: 05/30/16 02:06 Dose: 80 mg Sodium Chloride (Saline Flush) 10 ml FLUSH ASDIRECTED PRN PRN Reason: Keep Vein Open Last Admin: 05/28/16 17:30 Dose: 10 ml Sodium Chloride (Saline Flush) 2.5 ml FLUSH ASDIRECTED PRN PRN Reason: Keep Vein Open Last Admin: 05/28/16 17:31 Dose: 2.5 ml Tamsulosin HCl (Flomax) 0.4 mg PO BEDTIME [facility] Temazepam (Restoril) 15 mg PO BEDTIME PRN PRN Reason: Sleep Discontinued Medications Aspirin (Aspirin) 324 mg PO ONETIME ONE Stop: 05/28/16 17:14 Last Admin: 05/28/16 17:26 Dose: 243 mg Al Hydroxide/Mg Hydroxide 15 ml/ Metoclopramide HCl 5 mg/Lidocaine HCl 5 ml 0 ml PO ONETIME ONE Stop: 05/28/16 17:14 Last Admin: 05/28/16 17:26 Dose: 1 each Al Hydroxide/Mg Hydroxide 15 ml/ Metoclopramide HCl 5 mg/Lidocaine HCl 5 ml 0 ml PO ONETIME ONE Stop: 05/29/16 14:24 Last Admin: 05/29/16 14:52 Dose: 30 each Famotidine (Pepcid) 20 mg IVPUSH ONETIME ONE Stop: 05/28/16 17:14 Last Admin: 05/28/16 17:28 Dose: 20 mg Famotidine (Pepcid) 20 mg IVPUSH BID [facility] Last Admin: 05/29/16 10:32 Dose: Not Given Famotidine (Pepcid) 10 mg IVPUSH BID [facility] Sodium Chloride (Normal Saline) 1,000 mls @ 999 mls/hr IV .Bolus ONE Stop: 05/28/16 18:36 Last Admin: 05/28/16 17:39 Dose: 999 mls/hr Ketorolac Tromethamine (Toradol) 30 mg IVPUSH ONETIME ONE Stop: 05/28/16 17:14 Last Admin: 05/28/16 17:26 Dose: 30 mg Morphine Sulfate (Morphine) 4 mg IVPUSH Q1H PRN PRN Reason: Pain (severe 7-10) Stop: 05/29/16 20:43 Morphine Sulfate (Morphine) 2 mg IVPUSH Q1H PRN PRN Reason: Pain (severe 7-10) Stop: 05/29/16 20:43 Simethicone (Simethicone) 160 mg PO ONETIME ONE Stop: 05/28/16 19:54 Last Admin: 05/28/16 20:24 Dose: 160 mg Tamsulosin HCl (Flomax) 0.4 mg PO PCBREAKFAST [facility] Last Admin: 05/29/16 09:46 Dose: 0.4 mg - Exam Quality Assessment: DVT prophylaxis (scd's) General: alert, oriented, cooperative, no acute distress Neck: supple Lungs: Clear to auscultation, Normal respiratory effort Cardiovascular: Regular Rate, Regular Rhythm Abdomen: bowel sounds present, soft, no tenderness, no distension. No: rebound , guarding Extremities: no edema, no calf tenderness Peripheral Pulses: 2+: radial (L), radial (R) Skin: warm, dry, intact Neurological: no new focal deficit Psy/Mental Status: alert, normal affect, normal mood - Problem List & Annotations (1) Campylobacter diarrhea SNOMED Code(s): 46196878 Code(s): A04.5 - CAMPYLOBACTER ENTERITIS Status: Acute Current Visit: Yes (2) Syncope SNOMED Code(s): 825020459 Code(s): R55 - SYNCOPE AND COLLAPSE Status: Acute Current Visit: Yes - Problem List Review Problem List Initiated/Reviewed/Updated: Yes - My Orders Last 24 Hours: My Active Orders 05/29/16 09:30 Sodium Chloride 0.9% [Normal Saline] 1,000 ml IV ASDIRECTED 05/29/16 09:45 Famotidine [Pepcid] 10 mg IVPUSH BID 05/29/16 14:10 Simethicone 80 mg PO Q4H PRN 05/29/16 14:15 Fluticasone Propionate [Flonase] 1 gm NASBOTH BID 05/29/16 14:24 Metoprolol Tartrate [Lopressor] 2.5 mg IVPUSH Q4H PRN 05/30/16 08:46 Sodium Chloride 0.9% [Normal Saline] 1,000 ml IV .Bolus 05/30/16 09:00 Calcium Citrate [Calcitrate] 950 mg PO DAILY 05/30/16 21:00 Tamsulosin [Flomax] 0.4 mg PO BEDTIME 05/30/16 Breakfast Advance Diet Instructions [DIET] - Plan Plan:: 1. Diarrhea secondary to Campylobacter: -Continue azithromycin 500mg IV daily -Pepcid 10mg BID. Simethicone added for lower abdominal cramping and inability to pass gas. -Continue NS @ 200cc/hr. Kidney function has improved since admission. GFR is normal. White blood cell count is normal. -will receive a 1L NS bolus today -Will advance diet from clear liquids as tolerated today. #2. Hypocalcemia: -Calcium was 7.2 this morning. Start on calcium citrate 950 mg daily. Disposition: Potential discharge this afternoon pending how he tolerates advancement of his diet.
[2016-05-30] MEDS: Lactated Ringers 1,000 ML IV SCH (20:04)
[2016-05-30] MEDS ORDERED: Tamsulosin 0.4 MG Cap.ER PO SCH (21:00)
[2016-05-31] MEDS: Azithromycin 500 MG in Sodium Chloride 0.9% 250 ML IV SCH (01:17)
[2016-05-31] MEDS: Loperamide 2 MG Cap PO PRN ×2 (02:15→10:14)
[2016-05-31] MEDS: Simethicone 80 MG Tab.Chew PO PRN (02:15)
[2016-05-31] MEDS: Lactated Ringers 1,000 ML IV SCH ×2 (04:16→11:20)
[2016-05-31 06:43] LABS: CHLORIDE,CL 114 mmol/L (98-110); SODIUM,NA 139 mmol/L (136-146)
[2016-05-31] MEDS: Calcium Citrate 950 MG Tab PO SCH (09:57)
[2016-05-31] MEDS: Fluticasone Propionate Nasal Spray 16 GM Bottle NASBOTH SCH (09:57)
[2016-05-31] MEDS: Aspirin 81 MG Tab.EC PO SCH (09:57)
[2016-05-31] MEDS: Famotidine 20 MG/2 ML SDV IVPUSH SCH (09:57)
[2016-05-31 11:53] VITALS: BP 134/81
[2016-05-31] MEDS ORDERED: Magnesium Sulfate/Water 2 GM in Premix Bag 1 BAG IV ONE (12:08)
[2016-05-31] MEDS ORDERED: Potassium Chloride 10% 20 MEQ/15 ML Soln 30 ML UD Cup PO ONE (12:18)
--- NOTE | 2016-05-31 12:34 | PCM.DCSUM1 ---
Discharge Summary - Hospital Course Brief History: He was admitted with hypovolemic shock secondary to diarrheal illness. - Discharge Data Discharge Date: 05/31/16 Discharge Disposition: Home, Self-Care 01 Condition: Fair - Discharge Diagnosis/Problem(s) (1) Hypovolemic shock SNOMED Code(s): 02260133 ICD Code: R57.1 - HYPOVOLEMIC SHOCK Status: Acute Current Visit: Yes (2) Syncope SNOMED Code(s): 945255194 ICD Code: R55 - SYNCOPE AND COLLAPSE Status: Acute Current Visit: Yes - Patient Summary/Data Hospital Course: initially his circulatory hypovolemic shock was manifest by decreased capillary refill in his toes. He was given intravenous crystalloid hydration. His stool culture was positive for campylobacter. He was also noted to have heme positive stool. he was also started on azithromycin. He states that he had tendon pain in the past when he took ciprofloxacin. MgSulfate intravenously and oral K ordered before discharge for mild decrease in Mg and K levels respectively. At discharge he still has watery stools but is not nauseated and is ambulatory without assistance. He is afebrile on the day of discharge and he feels ready to go home. Impression: hypovolemic shock due to campylobacter enteritis; now improving azithromycin 500 mg daily po x seven days [facility]/u sooner if needed Arslan Fong MD - Discharge Plan Home Medications: Home Meds Vitamin E 1,000 units PO DAILY 06/16/13 [History] Aspirin [Lo-Dose Aspirin EC] 81 mg PO DAILY 05/28/16 [History] Cholecalciferol (Vitamin D3) [Vitamin D3] 3,000 units PO DAILY 05/28/16 [History ] Lactobacillus Combination No.4 [Probiotic] 1 each PO DAILY 05/28/16 [History] Tamsulosin [Flomax] 0.4 mg PO BEDTIME 05/28/16 [History] Ubidecarenone [COQ-10] 30 mg PO DAILY 05/28/16 [History] Patient Handouts: Diarrhea, Adult, Syncope, [id number] Referrals[facility] [[facility]] - Patient Data Vitals - Most Recent: Last Vital Signs Temp 97.2 F 05/31/16 11:52 Pulse 62 05/31/16 11:52 Resp 20 05/31/16 11:52 BP 134/81 05/31/16 11:52 Pulse Ox 98 05/31/16 11:52 Weight - Most Recent: 83.4 kg I&O - Last 24 hours: Intake & Output 05/30/16 05/31/16 05/31/16 22:59 06:59 14:59 Intake Total 2350 450 991 Output Total 1400 1750 Balance 950 -1300 991 Lab Results - Last 24 hrs: Laboratory Results - last 24 hr 05/31/16 05/31/16 Range/Units 05:30 05:30 WBC 6.12 (4.0-11.0) K/uL RBC 3.92 L (4.50-5.90) M/uL Hgb 12.8 L (13.0-17.0) g/dL Hct 37.1 L (38.0-50.0) % MCV 94.6 (80.0-98.0) fL MCH 32.7 H (27.0-32.0) pg MCHC 34.5 (31.0-37.0) g/dL RDW Std Deviation 46.7 (28.0-62.0) fl RDW Coeff of Alondra 14 (11.0-15.0) % Plt Count 132 L (150-400) K/uL MPV 11.50 (7.40-12.00) fL Neut % (Auto) 57.9 (48.0-80.0) % Lymph % (Auto) 26.8 (16.0-40.0) % [place] % (Auto) 13.2 (0.0-15.0) % Eos % (Auto) 1.8 (0.0-7.0) % Baso % (Auto) 0.3 (0.0-1.5) % Neut # (Auto) 3.5 (1.4-5.7) K/uL Lymph # (Auto) 1.6 (0.6-2.4) K/uL [place] # (Auto) 0.8 (0.0-0.8) K/uL Eos # (Auto) 0.1 (0.0-0.7) K/uL Baso # (Auto) 0.0 (0.0-0.1) K/uL Nucleated RBC % 0.0 /100WBC Nucleated RBCs # 0 K/uL Sodium 139 (136-146) mmol/L Potassium 3.3 L (3.5-5.1) mmol/L Chloride 114 H (98-110) mmol/L Carbon Dioxide 17 L (21-31) mmol/L BUN 9 (6.0-23.0) mg/dL Creatinine 0.9 (0.6-1.5) mg/dL Est Cr Clr Drug Dosing 82.24 mL/min Estimated GFR (MDRD) > 60.0 ml/min Glucose 70 (60-110) mg/dL Calcium 7.7 L (8.8-10.8) mg/dL Magnesium 1.4 L (1.5-2.3) mEq/L Total Bilirubin 0.5 (0.1-1.5) mg/dL AST 26 (5-40) IU/L ALT 21 (8-54) IU/L Alkaline Phosphatase 30 L (40-150) Total Protein 5.6 L (6.0-8.0) g/dL Albumin 3.2 L (3.4-4.8) g/dL Globulin 2.4 (2.0-3.5) g/dL Albumin/Globulin Ratio 1.3 (1.3-2.8) YUNG Results - Last 24 hrs: Microbiology 05/28/16 23:50 Stool Culture - Final Stool / Feces NO SALMONELLA, SHIGELLA,OR E.COLI O157 ISOLATED Campylobacter Antigen Assay - Final Positive Campylobacter Ag - Final NEGATIVE FOR SHIGA TOXIN 1 - Final NEGATIVE FOR SHIGA TOXIN 2 Med Orders - Current: Current Medications Acetaminophen (Tylenol) 650 mg PO Q4H PRN PRN Reason: Pain (Mild 1-3)/fever Last Admin: 05/30/16 22:56 Dose: 650 mg Aspirin (Halfprin) 81 mg PO DAILY [facility] Last Admin: 05/31/16 09:57 Dose: 81 mg Azithromycin (Zithromax) 500 mg PO Q24H [facility] Calcium Citrate (Calcitrate) 950 mg PO DAILY [facility] Last Admin: 05/31/16 09:57 Dose: 950 mg Famotidine (Pepcid) 10 mg IVPUSH BID [facility] Last Admin: 05/31/16 09:57 Dose: 10 mg Fluticasone Propionate (Flonase) 1 gm NASBOTH BID [facility] Last Admin: 05/31/16 09:57 Dose: 1 spray Lactated Ringer's (Ringers, Lactated) 1,000 mls @ 150 mls/hr IV ASDIRECTED [facility] Last Admin: 05/31/16 11:20 Dose: 150 mls/hr Magnesium Sulfate 2 gm/ Premix 50 mls @ 50 mls/hr IV ONETIME ONE Stop: 05/31/16 13:07 Last Admin: 05/31/16 12:24 Dose: 50 mls/hr Loperamide HCl (Imodium) 2 mg PO ASDIRECTED PRN PRN Reason: Diarrhea Last Admin: 05/31/16 10:14 Dose: 2 mg Metoprolol Tartrate (Lopressor) 2.5 mg IVPUSH Q4H PRN PRN Reason: Hypertension Ondansetron HCl (Zofran) 4 mg IVPUSH Q4H PRN PRN Reason: Nausea Simethicone (Simethicone) 80 mg PO Q4H PRN PRN Reason: Gas Last Admin: 05/31/16 02:15 Dose: 80 mg Sodium Chloride (Saline Flush) 10 ml FLUSH ASDIRECTED PRN PRN Reason: Keep Vein Open Last Admin: 05/28/16 17:30 Dose: 10 ml Sodium Chloride (Saline Flush) 2.5 ml FLUSH ASDIRECTED PRN PRN Reason: Keep Vein Open Last Admin: 05/28/16 17:31 Dose: 2.5 ml Tamsulosin HCl (Flomax) 0.4 mg PO BEDTIME [facility] Last Admin: 05/30/16 20:30 Dose: 0.4 mg Temazepam (Restoril) 15 mg PO BEDTIME PRN PRN Reason: Sleep Discontinued Medications Aspirin (Aspirin) 324 mg PO ONETIME ONE Stop: 05/28/16 17:14 Last Admin: 05/28/16 17:26 Dose: 243 mg Al Hydroxide/Mg Hydroxide 15 ml/ Metoclopramide HCl 5 mg/Lidocaine HCl 5 ml 0 ml PO ONETIME ONE Stop: 05/28/16 17:14 Last Admin: 05/28/16 17:26 Dose: 1 each Al Hydroxide/Mg Hydroxide 15 ml/ Metoclopramide HCl 5 mg/Lidocaine HCl 5 ml 0 ml PO ONETIME ONE Stop: 05/29/16 14:24 Last Admin: 05/29/16 14:52 Dose: 30 each Famotidine (Pepcid) 20 mg IVPUSH ONETIME ONE Stop: 05/28/16 17:14 Last Admin: 05/28/16 17:28 Dose: 20 mg Famotidine (Pepcid) 20 mg IVPUSH BID [facility] Last Admin: 05/29/16 10:32 Dose: Not Given Famotidine (Pepcid) 10 mg IVPUSH BID [facility] Sodium Chloride (Normal Saline) 1,000 mls @ 999 mls/hr IV .Bolus ONE Stop: 05/28/16 18:36 Last Admin: 05/28/16 17:39 Dose: 999 mls/hr Sodium Chloride (Normal Saline) 1,000 mls @ 200 mls/hr IV ASDIRECTED [facility] Last Admin: 05/30/16 18:07 Dose: 200 mls/hr Azithromycin 500 mg/ Sodium (Chloride) 250 mls @ 250 mls/hr IV Q24H [facility] Stop: 05/31/16 03:14 Last Admin: 05/31/16 01:17 Dose: 250 mls/hr Sodium Chloride (Normal Saline) 1,000 mls @ 999 mls/hr IV ASDIRECTED [facility] Last Admin: 05/29/16 09:45 Dose: 999 mls/hr Sodium Chloride (Normal Saline) 1,000 mls @ 999 mls/hr IV .Bolus ONE Stop: 05/30/16 09:46 Last Admin: 05/30/16 09:00 Dose: 999 mls/hr Ketorolac Tromethamine (Toradol) 30 mg IVPUSH ONETIME ONE Stop: 05/28/16 17:14 Last Admin: 05/28/16 17:26 Dose: 30 mg Morphine Sulfate (Morphine) 4 mg IVPUSH Q1H PRN PRN Reason: Pain (severe 7-10) Stop: 05/29/16 20:43 Morphine Sulfate (Morphine) 2 mg IVPUSH Q1H PRN PRN Reason: Pain (severe 7-10) Stop: 05/29/16 20:43 Potassium Chloride (Potassium Chloride) 40 meq PO ONETIME ONE Stop: 05/31/16 12:19 Last Admin: 05/31/16 12:24 Dose: 40 meq Simethicone (Simethicone) 160 mg PO ONETIME ONE Stop: 05/28/16 19:54 Last Admin: 05/28/16 20:24 Dose: 160 mg Tamsulosin HCl (Flomax) 0.4 mg PO PCBREAKFAST [facility] Last Admin: 05/29/16 09:46 Dose: 0.4 mg *Q Meaningful Use (DIS) - VTE *Q VTE Criteria *Q: - Stroke *Q Stroke Criteria *Q: - AMI *Q AMI Criteria *Q:
[2016-05-31] MEDS ORDERED: Azithromycin 250 MG Tab PO SCH (21:00)
== END 2016-05-31 13:45 | disposition home or self-care (01) | DRG 872 ==
LOC: MW.ED 17:04 → MW.MS 20:38 → MW.ICU 20:43 → MW.MS 05-30 20:22
PROVIDERS: ADMIT Family Medicine; ATTEND Family Medicine
DX: R57.1 Hypovolemic shock (principal); E78.00 Pure hypercholesterolemia, unspecified; I10 Essential (primary) hypertension; A04.5 Campylobacter enteritis; R55 Syncope and collapse; I25.10 Atherosclerotic heart disease of native coronary artery without angina pectoris; Z95.5 Presence of coronary angioplasty implant and graft; I25.2 Old myocardial infarction; E83.51 Hypocalcemia; Z88.8 Allergy status to other drugs, medicaments and biological substances; Z79.82 Long term (current) use of aspirin; Z79.899 Other long term (current) drug therapy
CPT/HCPCS: 36415; 70450; 71020; 80053; 81001; 82150; 82272; 83690; 84484; 85025; 85610; 87086; 93005; 96361; 96374; 96375; 99285; A9270 ×5; J1885; J7040; 83630; 83735; 87046; 87324; 87899; J0456; J3475; J7050; J7120

== ENCOUNTER 2017-06-04 06:26 | Observation (INO) | payer MEDICARE, BC ==
[~2017-06-04 06:26] MED LIST: Lactated Ringers 1,000 ML IV SCH; Sodium Chloride 0.9% 2.5 ML Syringe FLUSH PRN; ceFAZolin 2 GM in Premix Bag 1 BAG IV ONE
[2017-06-04] MEDS ORDERED: Propofol 200 MG/20 ML SDV ONE (06:53)
[2017-06-04] MEDS ORDERED: Midazolam 1 MG/ML 2 ML SDV ONE (06:53)
--- NOTE | 2017-06-04 07:36 | PCM.PREANE ---
Preanesthetic Assessment - Anesthesia/Transfusion/Family Hx Anesthesia History: Prior Anesthesia Without Reaction Family History of Anesthesia Reaction: No Transfusion History: No Prior Transfusion(s) - Review of Systems General: No Symptoms Pulmonary: No Symptoms Cardiovascular: No Symptoms Gastrointestinal: No Symptoms Neurological: No Symptoms Other: Reports: None - Physical Assessment NPO Status Date: 06/03/17 O2 Sat by Pulse Oximetry: 100 Respiratory Rate: 16 Vital Signs: Last Vital Signs Temp 36.5 C 06/04/17 07:15 Pulse 63 06/04/17 07:15 Resp 16 06/04/17 07:15 BP 129/82 06/04/17 07:15 Pulse Ox 100 06/04/17 07:15 Height: 1.78 m Weight: 84.368 kg ASA Class: 3 Mental Status: Alert & Oriented x3 Airway Class: Mallampati = 2 Dentition: Reports: Normal Dentition ROM/Head Extension: Limited/Partial Lungs: Clear to Auscultation, Normal Respiratory Effort Cardiovascular: Regular Rate, Regular Rhythm - Allergies Allergies/Adverse Reactions: Allergies Allergy/AdvReac Type Severity Reaction Status Date / Time ciprofloxacin [From Cipro] Allergy Pain Verified 06/02/17 09:51 diazepam [From Valium] Allergy Anxiety Verified 06/02/17 09:51 doxycycline Allergy Blisters Verified 06/02/17 09:51 - Acknowledgements Anesthesia Type Planned: General Anesthesia (PMH: sp ant cerv fusion with plates in Nov 2016, also remote hx of lumbar fusion with plates/rods. CAD (s/p AMI in 1995, had stent in 1995 - probably bare metal, has had no recent anginal sx, had nuclear medicine stress test last fall, aparently normal, stopped aspirin 1 week ago), HTN, HLD) Pt an Appropriate Candidate for the Planned Anesthesia: Yes Alternatives and Risks of Anesthesia Discussed w Pt/Guardian: Yes Pt/Guardian Understands and Agrees with Anesthesia Plan: Yes PreAnesthesia Questionnaire HEENT History: Reports: Impaired Vision, Other (See Below) Other HEENT History: corrective glasses, presently on antibiotic for ear infection Cardiovascular History: Reports: CAD, High Cholesterol, Hypertension, SC, Prior Cardiac Arrest, Stents Other Cardiovascular History: previously on BP meds but no longer has HTN Respiratory History: Reports: None Gastrointestinal History: Reports: None Genitourinary History: Reports: Prostate Disorder, Renal Calculus Musculoskeletal History: Reports: Fracture Other Musculoskeletal History: fx pelvis Neurological History: Reports: None Psychiatric History: Reports: None Endocrine/Metabolic History: Reports: None Hematologic History: Reports: None Immunologic History: Reports: None Oncologic (Cancer) History: Reports: None Dermatologic History: Reports: None - Past Surgical History Head Surgeries/Procedures: Reports: None HEENT Surgical History: Reports: Cataract Surgery, Naso-Sinus Surgery Cardiovascular Surgical History: Reports: Coronary Artery Stent Other Cardiovascular Surgeries/Procedures: 1 stent 1995 Male Surgical History: Reports: Kidney Stone Extraction, Renal Calculus Neurological Surgical History: Reports: C-Spine, Lumbar Spine Other Neurological Surgeries/Procedures: cervical and spinal fusion Musculoskeletal Surgical History: Reports: Other (See Below) Other Musculoskeletal Surgeries/Procedures:: back surgery - SUBSTANCE USE Smoking Status *Q: Never Smoker Second Hand Smoke Exposure: No Days Per Week of Alcohol Use: 0 Recreational Drug Use History: No - HOME MEDS Home Medications: Home Meds Vitamin E 1,000 units PO DAILY 06/16/13 [History] Aspirin [Lo-Dose Aspirin EC] 81 mg PO DAILY 05/28/16 [History] Cholecalciferol (Vitamin D3) [Vitamin D3] 5,000 units PO DAILY 05/28/16 [History ] Lactobacillus Combination No.4 [Probiotic] 1 each PO DAILY 05/28/16 [History] Tamsulosin [Flomax] 2 tab PO BEDTIME 05/28/16 [History] Ubidecarenone [COQ-10] 30 mg PO DAILY 05/28/16 [History] Amoxicillin/Clavulanate K [Augmentin 875-125 MG] 1 b PO BID 06/02/17 [History] Rosuvastatin Calcium 20 mg PO BEDTIME 06/04/17 [History] - CURRENT (IN HOUSE) MEDS Current Meds: Current Medications Lactated Ringer's (Ringers, Lactated) 1,000 mls @ 100 mls/hr IV ASDIRECTED [facility] Last Admin: 06/04/17 06:55 Dose: 100 mls/hr Sodium Chloride (Saline Flush) 2.5 ml FLUSH ASDIRECTED PRN PRN Reason: Keep Vein Open Discontinued Medications Cefazolin Sodium/Dextrose 2 gm (/ Premix) 50 mls @ 100 mls/hr IV ONCALL ONE Stop: 06/04/17 00:30 Lidocaine HCl (Xylocaine-Mpf 1%) Confirm Administered Dose 5 ml .ROUTE .STK-MED ONE Stop: 06/04/17 06:54 Midazolam HCl (Versed 1 Mg/Ml) Confirm Administered Dose 2 mg .ROUTE .STK-MED ONE Stop: 06/04/17 06:54 Propofol (Diprivan 20 Ml) Confirm Administered Dose 600 mg .ROUTE .STK-MED ONE Stop: 06/04/17 06:54
[2017-06-04] MEDS ORDERED: Iopamidol 408 MG/ML 50 ML SDV ONE (07:38)
[2017-06-04] MEDS ORDERED: fentaNYL 100 MCG/2 ML SDV ONE ×2 (08:22→08:46)
[2017-06-04] MEDS ORDERED: ceFAZolin 1 GM Vial ONE (08:27)
[2017-06-04] MEDS ORDERED: Sodium Chloride 0.9% 20 ML ONE (08:27)
[2017-06-04] MEDS ORDERED: Glycopyrrolate 0.2 MG/ML SDV ONE ×2 (08:28→09:45)
[2017-06-04] MEDS ORDERED: Phenylephrine/Normal Saline 100 MCG/ML 10 ML Syringe ONE (08:39)
[2017-06-04] MEDS ORDERED: Phenylephrine 1% 10 MG/ML SDV ONE (08:45)
[2017-06-04] MEDS ORDERED: fentaNYL 100 MCG/2 ML SDV IVPUSH PRN (08:57)
--- NOTE | 2017-06-04 10:41 | PCM.POSTAN ---
POST ANESTHESIA ASSESSMENT - MENTAL STATUS Mental Status: Alert, Oriented - RESPIRATORY Respiratory Status: Respiratory Rate WNL, Airway Patent, O2 Saturation Stable - CARDIOVASCULAR CV Status: Pulse Rate WNL, Blood Pressure Stable - GASTROINTESTINAL GI Status: No Symptoms - POST OP HYDRATION Hydration Status: Adequate & Stable
[2017-06-04] MEDS ORDERED: D5 1/2 NS w/ 20 mEq/L KCl 1,000 ML IV SCH (11:30)
[2017-06-04] MEDS: Bacitracin Oint 28.35 GM Tube TOP SCH ×2 (14:40→22:07)
--- NOTE | 2017-06-04 17:53 | OR ---
SURGEON: Yahaira Flores M.D. DATE OF PROCEDURE: 06/04/2017 PREOPERATIVE DIAGNOSES: Bladder stones and benign prostatic hypertrophy with urinary retention. POSTOPERATIVE DIAGNOSES: Bladder stones and benign prostatic hypertrophy with urinary retention. OPERATIONS: Cystolithotripsy and TURP. DESCRIPTION OF PROCEDURE: The patient was given general anesthesia, placed in dorsal lithotomy position, prepped and draped in sterile drapes. The [place] cystoscope was introduced in the bladder without difficulty. The stones that were in the bladder, total of 7, with the largest about 1.5 cm, were all broken up into a multitude of small pieces using the holmium laser, these were irrigated out. The TURP was then done in the usual manner starting with the floor of the prostatic urethra going on laterally and anteriorly. At the end of the resection, all prostatic chips were removed. Both ureteral orifices were intact. The area of the external sphincter was intact. Estimated blood loss about [address] mL[address] A [address] Keith catheter with 60 mL in the balloon was left in the bladder, connected to TUR drip. The patient tolerated the procedure well and was moved to recovery room in good condition. HIRAM / INGRID /[id number]
[2017-06-04] MEDS: Docusate Sodium 100 MG Cap PO SCH (20:16)
[2017-06-04] MEDS ORDERED: Nitrofurantoin Monohydrate/Macrocrystalline 100 MG Cap PO SCH (21:00)
[2017-06-04] MEDS ORDERED: AMOXICILLIN PO SCH (21:00)
[2017-06-04] MEDS ORDERED: CLAVULANATE K PO SCH (21:00)
--- NOTE | 2017-06-04 22:09 | PCM48HPAN ---
Post Anesthesia Note - EVALUATION WITHIN 48HRS OF ANESTHETIC Vital Signs in Normal Range: Yes Patient Participated in Evaluation: Yes Respiratory Function Stable: Yes Airway Patent: Yes Cardiovascular Function Stable: Yes Hydration Status Stable: Yes Pain Control Satisfactory: Yes Nausea and Vomiting Control Satisfactory: Yes Mental Status Recovered: Yes Resp Rate: 14
[2017-06-04] MEDS: Belladonna Alkaloids/Opium 16.2-30 MG Supp RECTAL PRN (22:30)
[2017-06-05] MEDS: Belladonna Alkaloids/Opium 16.2-30 MG Supp RECTAL PRN (03:49)
[2017-06-05] MEDS: Bacitracin Oint 28.35 GM Tube TOP SCH ×2 (06:35→15:19)
[2017-06-05] MEDS: Docusate Sodium 100 MG Cap PO SCH (08:22)
[2017-06-05] MEDS ORDERED: CLAVULANATE K PO SCH (09:00)
[2017-06-05] MEDS ORDERED: AMOXICILLIN PO SCH (09:00)
[2017-06-05 12:06] VITALS: BP 127/79
--- NOTE | 2017-06-06 12:37 | DISCH ---
DATE OF DISCHARGE: 06/05/2017 PRIMARY CARE PHYSICIAN: Arlene PCP HOSPITAL COURSE: He was seen in the office because of gross hematuria. His evaluation included a CT scan that showed bladder stones and a greatly distended bladder. His prostate ultrasound showed an adenoma that measured approximately 25 mL. His urine was not suggestive of UTI. He was scheduled and received TURP on the 04 of June. Postoperatively, he did well. The urine remained relatively clear. The catheter was taken out on the first postop day. Postvoid residual urine remained in excess of 900 mL, so I had to put a Keith catheter in that was 18- [place]. He was sent home with the Keith catheter. The plan is to leave the catheter in for the next 9 days. Then, I will see him in the office once he has taken the catheter out that morning. He will be seen in the afternoon for a postvoid residual urine check. He was sent home on Macrobid. Pathology is still pending. HIRAM QUINTERO /[id number]
== END 2017-06-05 16:00 | disposition home or self-care (01) ==
LOC: MW.SDS 06:26 → MW.MS 11:10 → MW.SDS 11:52
PROVIDERS: ADMIT Urology; ATTEND Urology
DX: N21.0 Calculus in bladder (principal); N40.1 Benign prostatic hyperplasia with lower urinary tract symptoms; R33.8 Other retention of urine; I25.10 Atherosclerotic heart disease of native coronary artery without angina pectoris; E78.00 Pure hypercholesterolemia, unspecified; I10 Essential (primary) hypertension; I25.2 Old myocardial infarction; Z95.5 Presence of coronary angioplasty implant and graft; Z88.1 Allergy status to other antibiotic agents; Z88.8 Allergy status to other drugs, medicaments and biological substances; Z79.899 Other long term (current) drug therapy; Z79.82 Long term (current) use of aspirin
CPT/HCPCS: 36415; 52317; 52601; 80051; 84132; 84295; 85018; 85025; A9270; J0690; J2250; J2370; J3010; J3480; J7120; J2704; Q9966

== ENCOUNTER 2019-04-30 11:33 | Observation (INO) | payer MEDICARE, BC ==
[2019-04-30] MEDS ORDERED: Sodium Chloride 0.9% 1,000 ML IV ONE ×2 (11:37→14:37)
[2019-04-30] MEDS ORDERED: Ondansetron 4 MG/2 ML SDV IVPUSH ONE (11:38)
--- NOTE | 2019-04-30 11:51 | EDM.PDOC ---
ED HPI GENERAL MEDICAL PROBLEM - General Chief Complaint: Syncope Stated Complaint: EMS ARRIVAL Time Seen by Provider: 04/30/19 11:37 Source of Information: Reports: Patient History Limitations: Reports: No Limitations - History of Present Illness INITIAL COMMENTS - FREE TEXT/NARRATIVE: HISTORY AND PHYSICAL: History of present illness: Patient is a 68-year-old male who presents to the ED today via EMS for concern of a syncopal event. Per EMS, patient's had called the ambulance after patient was walking to the bathroom and had fallen. Patient states that he remembers everything except for the actual fall. Patient states that he remembers having to go to the bathroom and when walking he woke up on the ground. Patient states that after that he felt nauseous and had 2 episodes of vomiting. Patient states that the only thing bothering him since the fall or is painful is a little spot on his left side of his forehead. Patient states he is not having any extremity pain, hip pain, or any pain at this time. Patient states he does have a history of a heart attack that he had "many years ago" and s/p stent placement. Patient also has a history of hypercholesterolemia, and hypertension. Patient denies fever, chills, chest pain, shortness of breath, or cough. Denies headache, neck stiff ness, change in vision. Denies abdominal pain, diarrhea, constipation, or dysuria. Has not noted any blood in urine or stool. Patient has been eating and drinking appropriately. Review of systems: As per history of present illness and below otherwise all systems reviewed and negative. Past medical history: As per history of present illness and as reviewed below otherwise noncontributory. Surgical history: As per history of present illness and as reviewed below otherwise noncontributory. Social history: See social history for further information Family history: As per history of present illness and as reviewed below otherwise noncontributory. Physical exam: General: Patient is alert, oriented, and in no acute distress. Patient laying comfortably on exam table. HEENT: There is a superficial abrasion to the left side of the forehead without bleeding. Otherwise, atraumatic, normocephalic, pupils equal and reactive bilaterally, negative for conjunctival pallor or scleral icterus, mucous membranes moist, TMs normal bilaterally, throat clear, neck supple, nontender, trachea midline. No drooling or trismus noted. No meningeal signs. No hot potato voice noted. Lungs: Clear to auscultation, breath sounds equal bilaterally, chest nontender. Heart: S1S2, regular rate and rhythm without overt murmur Abdomen: Soft, nondistended, nontender. Negative for masses or hepatosplenomegaly. Negative for costovertebral tenderness. Pelvis: Stable nontender. Genitourinary: Deferred. Rectal: Deferred. Skin: Intact, warm, dry. No lesions or rashes noted. Extremities: Atraumatic, negative for cords or calf pain. Neurovascular unremarkable. Neuro: Awake, alert, oriented. Cranial nerves II through XII unremarkable. Cerebellum unremarkable. Motor and sensory unremarkable throughout. Exam nonfocal. Notes: Dr. Arceo was consulted on patient and will admit to observation telemetry Voices understanding and is agreeable to plan of care. Denies any further questions or concerns at this time. Diagnostics: Head CT, EKG, CBC, CMP, UA, chest x-ray, troponin, lipase Therapeutics: NS, Zofran Impression: Syncope Plan: Admit to observation to Dr. Arceo on telemetry Definitive disposition and diagnosis as appropriate pending reevaluation and review of above. - Related Data Allergies Allergy/AdvReac Type Severity Reaction Status Date / Time ciprofloxacin [From Cipro] Allergy Pain Verified 04/30/19 11:35 diazepam [From Valium] Allergy Anxiety Verified 04/30/19 11:35 doxycycline Allergy Blisters Verified 04/30/19 11:35 Home Meds: Home Meds Vitamin E 1,000 units PO DAILY 06/16/13 [History] Aspirin [Lo-Dose Aspirin EC] 81 mg PO DAILY 05/28/16 [History] Cholecalciferol (Vitamin D3) [Vitamin D3] 5,000 units PO DAILY 05/28/16 [History ] Lactobacillus Combination No.4 [Probiotic] 1 each PO DAILY 05/28/16 [History] Ubidecarenone [COQ-10] 30 mg PO DAILY 05/28/16 [History] Rosuvastatin Calcium 20 mg PO BEDTIME 06/04/17 [History] Sertraline HCl 50 mg PO DAILY 04/30/19 [History] Past Medical History HEENT History: Reports: Impaired Vision, Other (See Below) Other HEENT History: corrective glasses, presently on antibiotic for ear infection Cardiovascular History: Reports: CAD, High Cholesterol, Hypertension, [place], Prior Cardiac Arrest, Stents Other Cardiovascular History: previously on BP meds but no longer has HTN Respiratory History: Reports: None Gastrointestinal History: Reports: None Genitourinary History: Reports: Prostate Disorder, Renal Calculus Musculoskeletal History: Reports: Fracture Other Musculoskeletal History: fx pelvis Neurological History: Reports: None Psychiatric History: Reports: None Endocrine/Metabolic History: Reports: None Hematologic History: Reports: None Immunologic History: Reports: None Oncologic (Cancer) History: Reports: None Dermatologic History: Reports: None - Infectious Disease History Infectious Disease History: Reports: Chicken Pox, Measles - Past Surgical History Head Surgeries/Procedures: Reports: None HEENT Surgical History: Reports: Cataract Surgery, Naso-Sinus Surgery Cardiovascular Surgical History: Reports: Coronary Artery Stent Other Cardiovascular Surgeries/Procedures: 1 stent 1995 Male Surgical History: Reports: Kidney Stone Extraction, Renal Calculus Neurological Surgical History: Reports: C-Spine, Lumbar Spine Other Neurological Surgeries/Procedures: cervical and spinal fusion Musculoskeletal Surgical History: Reports: Other (See Below) Other Musculoskeletal Surgeries/Procedures:: back surgery Social & Family History - Family History Family Medical History: Noncontributory HEENT: Reports: None Cardiac: Reports: None Respiratory: Reports: None GI: Reports: None - Tobacco Use Smoking Status *Q: Never Smoker - Caffeine Use Caffeine Use: Reports: Soda - Recreational Drug Use Recreational Drug Use: No ED ROS GENERAL - Review of Systems Review Of Systems: Comprehensive ROS is negative, except as noted in HPI. ED EXAM, GENERAL - Physical Exam Exam: See Below (see dictation) Course - Vital Signs Last Recorded V/S: Last Vital Signs Temp 96.5 F L 04/30/19 11:36 Pulse 67 04/30/19 13:20 Resp 18 04/30/19 13:20 BP 143/96 H 04/30/19 13:20 Pulse Ox 99 04/30/19 13:20 - Orders/Labs/Meds Orders: Active Orders 24 hr Category Date Time Status Admission Status [Patient Status] [ADT] Stat ADT 04/30/19 14:02 Ordered Cardiac Monitoring [RC] . DIRECTED Care 04/30/19 11:37 Active EKG Documentation Completion [RC] STAT Care 04/30/19 11:37 Active Orthostatic Vital Signs [RC] ASDIRECTED Care 04/30/19 14:02 Ordered Chest 1V Frontal [CR] Stat Exams 04/30/19 11:37 Taken UA RFX YUNG AND CULT IF INDIC [URIN] Stat Lab 04/30/19 11:37 Ordered Labs: Laboratory Tests 04/30/19 04/30/19 Range/Units 12:15 12:55 WBC 4.89 (4.0-11.0) K/uL RBC 4.48 L (4.50-5.90) M/uL Hgb 14.6 (13.0-17.0) g/dL Hct 43.2 (38.0-50.0) % MCV 96.4 (80.0-98.0) fL MCH 32.6 H (27.0-32.0) pg MCHC 33.8 (31.0-37.0) g/dL RDW Std Deviation 45.4 (28.0-62.0) fl RDW Coeff of Alondra 13 (11.0-15.0) % Plt Count 212 (150-400) K/uL MPV 11.40 (7.40-12.00) fL Neut % (Auto) 51.5 (48.0-80.0) % Lymph % (Auto) 31.3 (16.0-40.0) % [place] % (Auto) 11.7 (0.0-15.0) % Eos % (Auto) 4.9 (0.0-7.0) % Baso % (Auto) 0.6 (0.0-1.5) % Neut # (Auto) 2.5 (1.4-5.7) K/uL Lymph # (Auto) 1.5 (0.6-2.4) K/uL [place] # (Auto) 0.6 (0.0-0.8) K/uL Eos # (Auto) 0.2 (0.0-0.7) K/uL Baso # (Auto) 0.0 (0.0-0.1) K/uL Nucleated RBC % 0.0 /100WBC Nucleated RBCs # 0 K/uL Sodium 141 (136-148) mmol/L Potassium 4.4 (3.5-5.1) mmol/L Chloride 107 (98-107) mmol/L Carbon Dioxide 25.5 (21.0-32.0) mmol/L BUN 17 (7.0-18.0) mg/dL Creatinine 1.3 (0.8-1.3) mg/dL Est Cr Clr Drug Dosing 56.31 mL/min Estimated GFR (MDRD) 54.6 ml/min Glucose 84 (74-106) mg/dL Calcium 8.9 (8.5-10.1) mg/dL Total Bilirubin 0.7 (0.2-1.0) mg/dL AST 22 (15-37) IU/L ALT 27 (14-63) IU/L Alkaline Phosphatase 54 (46-116) U/L Troponin I < 0.050 (0.000-0.056) ng/mL Total Protein 7.3 (6.4-8.2) g/dL Albumin 3.9 (3.4-5.0) g/dL Globulin 3.4 (2.6-4.0) g/dL Albumin/Globulin Ratio 1.1 (0.9-1.6) Lipase 178 (73-393) U/L Meds: Medications Discontinued Medications Generic Name Dose Route Start Last Admin Trade Name Freq PRN Reason Stop Dose Admin Sodium Chloride 1,000 mls @ 999 mls/hr 04/30/19 11:37 04/30/19 12:18 Normal Saline IV 04/30/19 12:37 999 mls/hr BOLUS ONE Administration Ondansetron HCl 4 mg 04/30/19 11:38 04/30/19 12:22 Zofran IVPUSH 04/30/19 11:39 Not Given ONETIME ONE Departure - Departure Time of Disposition: 14:08 Disposition: Refer to Observation Clinical Impression: Syncope Qualifiers: Syncope type: unspecified Qualified Code(s): R55 - Syncope and collapse - Discharge Information Referrals: [facility] [Primary Care Provider] - Forms: ED Department Discharge Sepsis Event Note - Evaluation Sepsis Screening Result: No Definite Risk - Focused Exam Vital Signs: Vital Signs Temp Pulse Resp BP Pulse Ox 04/30/19 13:20 67 18 143/96 H 99 04/30/19 12:20 59 L 16 142/89 H 98 04/30/19 11:36 96.5 F L 62 18 124/80 100 Date Exam was Performed: 04/30/19 Time Exam was Performed: 14:07 - My Orders Last 24 Hours: My Active Orders 04/30/19 11:37 Cardiac Monitoring [RC] . DIRECTED EKG Documentation Completion [RC] STAT Chest 1V Frontal [CR] Stat UA RFX YUNG AND CULT IF INDIC [URIN] Stat 04/30/19 14:02 Admission Status [Patient Status] [ADT] Stat Orthostatic Vital Signs [RC] ASDIRECTED - Assessment/Plan Last 24 Hours: My Active Orders 04/30/19 11:37 Cardiac Monitoring [RC] . DIRECTED EKG Documentation Completion [RC] STAT Chest 1V Frontal [CR] Stat UA RFX YUNG AND CULT IF INDIC [URIN] Stat 04/30/19 14:02 Admission Status [Patient Status] [ADT] Stat Orthostatic Vital Signs [RC] ASDIRECTED
--- NOTE | 2019-04-30 12:43 | CT ---
INDICATION: Patient fell and hit head today. TECHNIQUE: CT head without contrast. COMPARISON: 05/28/2016. FINDINGS: CSF spaces: Within normal limits for age. Brain parenchyma: The islas-white differentiation is normal. No sign of mass, hemorrhage, or midline shift. Skull base and calvarium: The visualized paranasal sinuses and mastoid air cells demonstrate no acute or significant findings. The visualized orbits are grossly unremarkable. No skull fractures. IMPRESSION: No acute intracranial abnormality. Please note that all CT scans at this facility use dose modulation, iterative reconstruction, and/or weight-based dosing when appropriate to reduce radiation dose to as low as reasonably achievable. Dictated by Ezio Magaña MD @ Apr 30 2019 12:38PM Signed by Dr. Ezio Magaña @ Apr 30 2019 12:42PM
[2019-04-30 13:30] LABS: BLOOD UREA NITROGEN,BUN 17 mg/dL (7.0-18.0); CARBON DIOXIDE,CO2 25.5 mmol/L (21.0-32.0); CHLORIDE,CL 107 mmol/L (98-107); GLUCOSE RANDOM 84 mg/dL (74-106); LIPASE 178 U/L (73-393); POTASSIUM,K 4.4 mmol/L (3.5-5.1); SODIUM,NA 141 mmol/L (136-148)
[2019-04-30] MEDS ORDERED: Ondansetron 4 MG/2 ML SDV IVPUSH PRN (14:27)
[2019-04-30] MEDS ORDERED: Ondansetron 4 MG Tab.DIS PO PRN (14:27)
[2019-04-30] MEDS ORDERED: Acetaminophen 325 MG Tab PO PRN (14:27)
--- NOTE | 2019-04-30 14:43 | PCM.HP.2 ---
H&P History of Present Illness - General Date of Service: 04/30/19 Admit Problem/Dx: Admission Diagnosis/Problem Admission Diagnosis/Problem Syncope Source of Information: Patient History Limitations: Reports: No Limitations - History of Present Illness Initial Comments - Free Text/Narative: 68-year-old male presented to ER via EMS after having witnessed syncopal event at his home earlier this morning. Patient has a PMH of [place] s/p stent, hyperlipidemia and PTSD. He was previously treated for HTN with anti- hypertensive medication, however, is no longer on any anti-hypertensive medication because his blood pressure had improved. Patient reports that earlier today he was talking to his friends at his house and then was walking towards the bathroom when he "passed out." The next thing he remembers is waking up on the floor. After waking up, he felt nauseous and vomited. This event was witnessed by his . There was no loss of bowel or bladder control or any jerking of extremities observed. Patient reports that he felt in his normal state of health this morning. He does report having diarrhea yesterday and had multiple bowel movements. He has been eating and drinking normally over the past few days. This has never happened to him before. He denies any fevers, chills, blurry vision, sore throat, cough, chest pain, SOB, abdominal pain, weakness, numbness, tingling, blood in stool or blood in urine. In the ER, EKG showed heart rate of 59 bpm and prolonged OH interval of 231 ms. Patient given [address] head was negative. CBC, CMP and troponin unremarkable. Patient admitted for further evaluation and treatment. - Related Data Allergies/Adverse Reactions: Allergies Allergy/AdvReac Type Severity Reaction Status Date / Time ciprofloxacin [From Cipro] Allergy Pain Verified 04/30/19 15:24 diazepam [From Valium] Allergy Anxiety Verified 04/30/19 15:24 doxycycline Allergy Blisters Verified 04/30/19 15:24 Home Medications: Home Meds Vitamin E 1,000 units PO DAILY 06/16/13 [History] Aspirin [Lo-Dose Aspirin EC] 81 mg PO DAILY 05/28/16 [History] Cholecalciferol (Vitamin D3) [Vitamin D3] 5,000 units PO DAILY 05/28/16 [History ] Lactobacillus Combination No.4 [Probiotic] 1 each PO DAILY 05/28/16 [History] Ubidecarenone [COQ-10] 30 mg PO DAILY 05/28/16 [History] Rosuvastatin Calcium 20 mg PO BEDTIME 06/04/17 [History] Sertraline HCl 50 mg PO DAILY 04/30/19 [History] Past Medical History HEENT History: Reports: Impaired Vision, Other (See Below) Other HEENT History: corrective glasses, presently on antibiotic for ear infection Cardiovascular History: Reports: CAD, High Cholesterol, Hypertension, [place], Prior Cardiac Arrest, Stents Other Cardiovascular History: previously on BP meds but no longer has HTN Respiratory History: Reports: None Gastrointestinal History: Reports: None Genitourinary History: Reports: Prostate Disorder, Renal Calculus Musculoskeletal History: Reports: Fracture Other Musculoskeletal History: fx pelvis Neurological History: Reports: None Psychiatric History: Reports: None Endocrine/Metabolic History: Reports: None Hematologic History: Reports: None Immunologic History: Reports: None Oncologic (Cancer) History: Reports: None Dermatologic History: Reports: None - Infectious Disease History Infectious Disease History: Reports: Chicken Pox, Measles - Past Surgical History Head Surgeries/Procedures: Reports: None HEENT Surgical History: Reports: Cataract Surgery, Naso-Sinus Surgery Cardiovascular Surgical History: Reports: Coronary Artery Stent Other Cardiovascular Surgeries/Procedures: 1 stent 1995 Male Surgical History: Reports: Kidney Stone Extraction, Renal Calculus Neurological Surgical History: Reports: C-Spine, Lumbar Spine Other Neurological Surgeries/Procedures: cervical and spinal fusion Musculoskeletal Surgical History: Reports: Other (See Below) Other Musculoskeletal Surgeries/Procedures:: back surgery Social & Family History - Family History Family Medical History: Noncontributory HEENT: Reports: None Cardiac: Reports: None Respiratory: Reports: None GI: Reports: None - Tobacco Use Smoking Status *Q: Never Smoker - Caffeine Use Caffeine Use: Reports: Soda - Recreational Drug Use Recreational Drug Use: No H&P Review of Systems - Review of Systems: Review Of Systems: Comprehensive ROS is negative, except as noted in HPI. Exam - Exam Exam: See Below - Vital Signs Vital Signs: Last Vital Signs Temp 96.5 F L 04/30/19 11:36 Pulse 67 04/30/19 13:20 Resp 18 04/30/19 13:20 BP 143/96 H 04/30/19 13:20 Pulse Ox 99 04/30/19 13:20 Weight: 180 lb - Exam General: Alert, Oriented, Cooperative, Other (NAD) HEENT: Conjunctiva Clear, EOMI, Hearing Intact, Posterior Pharynx Clear, Pupils Equal, Pupils Reactive Neck: Supple, Trachea Midline Lungs: Clear to Auscultation, Normal Respiratory Effort Cardiovascular: Regular Rate, Regular Rhythm GI/Abdominal Exam: Normal Bowel Sounds, Soft, Non-Tender, No Distention Extremities: Normal Inspection, No Pedal Edema Peripheral Pulses: 2+: Radial (L), Radial (R) Skin: Warm, Dry, Intact Neurological: Cranial Nerves Intact, Strength Equal Bilateral, Normal Speech, Normal Tone Neuro Extensive - Mental Status: Alert, Oriented x3, Normal Mood/Affect Psychiatric: Alert, Normal Affect, Normal Mood - Patient Data Lab Results Last 24 hrs: Laboratory Results - last 24 hr 04/30/19 04/30/19 Range/Units 12:15 12:55 WBC 4.89 (4.0-11.0) K/uL RBC 4.48 L (4.50-5.90) M/uL Hgb 14.6 (13.0-17.0) g/dL Hct 43.2 (38.0-50.0) % MCV 96.4 (80.0-98.0) fL MCH 32.6 H (27.0-32.0) pg MCHC 33.8 (31.0-37.0) g/dL RDW Std Deviation 45.4 (28.0-62.0) fl RDW Coeff of Alondra 13 (11.0-15.0) % Plt Count 212 (150-400) K/uL MPV 11.40 (7.40-12.00) fL Neut % (Auto) 51.5 (48.0-80.0) % Lymph % (Auto) 31.3 (16.0-40.0) % [place] % (Auto) 11.7 (0.0-15.0) % Eos % (Auto) 4.9 (0.0-7.0) % Baso % (Auto) 0.6 (0.0-1.5) % Neut # (Auto) 2.5 (1.4-5.7) K/uL Lymph # (Auto) 1.5 (0.6-2.4) K/uL [place] # (Auto) 0.6 (0.0-0.8) K/uL Eos # (Auto) 0.2 (0.0-0.7) K/uL Baso # (Auto) 0.0 (0.0-0.1) K/uL Nucleated RBC % 0.0 /100WBC Nucleated RBCs # 0 K/uL Sodium 141 (136-148) mmol/L Potassium 4.4 (3.5-5.1) mmol/L Chloride 107 (98-107) mmol/L Carbon Dioxide 25.5 (21.0-32.0) mmol/L BUN 17 (7.0-18.0) mg/dL Creatinine 1.3 (0.8-1.3) mg/dL Est Cr Clr Drug Dosing 56.31 mL/min Estimated GFR (MDRD) 54.6 ml/min Glucose 84 (74-106) mg/dL Calcium 8.9 (8.5-10.1) mg/dL Total Bilirubin 0.7 (0.2-1.0) mg/dL AST 22 (15-37) IU/L ALT 27 (14-63) IU/L Alkaline Phosphatase 54 (46-116) U/L Troponin I < 0.050 (0.000-0.056) ng/mL Total Protein 7.3 (6.4-8.2) g/dL Albumin 3.9 (3.4-5.0) g/dL Globulin 3.4 (2.6-4.0) g/dL Albumin/Globulin Ratio 1.1 (0.9-1.6) Lipase 178 (73-393) U/L Result Diagrams: 04/30/19 12:15 04/30/19 12:55 Sepsis Event Note - Evaluation Sepsis Screening Result: No Definite Risk - Focused Exam Vital Signs: Vital Signs Temp Pulse Resp BP Pulse Ox 04/30/19 13:20 67 18 143/96 H 99 04/30/19 12:20 59 L 16 142/89 H 98 04/30/19 11:36 96.5 F L 62 18 124/80 100 Date Exam was Performed: 04/30/19 Time Exam was Performed: 15:36 Problem List Initiated/Reviewed/Updated: Yes Orders Last 24hrs: Active Orders 24 hr Category Date Time Status Admission Status [Patient Status] [ADT] Stat ADT 04/30/19 14:02 Active Cardiac Monitoring [RC] . DIRECTED Care 04/30/19 11:37 Active EKG Documentation Completion [RC] STAT Care 04/30/19 11:37 Active Orthostatic Vital Signs [RC] ASDIRECTED Care 04/30/19 14:02 Active Oxygen Therapy [RC] PRN Care 04/30/19 14:28 Ordered Telemetry Monitoring [Cardiac Monitoring] [RC] . Care 04/30/19 14:31 Ordered DIRECTED Up With Assistance [RC] ASDIRECTED Care 04/30/19 14:27 Ordered VTE/DVT Education [RC] PER UNIT ROUTINE Care 04/30/19 14:28 Ordered Vital Signs [RC] Q4H Care 04/30/19 14:28 Ordered PT Evaluation and Treatment [CONS] Routine Cons 04/30/19 14:27 Ordered Heart Healthy Diet [DIET] Diet 04/30/19 Lunch Ordered CV Carotid Duplex Comp [US] Urgent Exams 04/30/19 14:32 Ordered Chest 1V Frontal [CR] Stat Exams 04/30/19 11:37 Taken Echo Comp wo Cont [US] Urgent Exams 04/30/19 14:31 Ordered GLYCOSYLATED HEMOGLOBIN,HGBA1C [CHEM] Routine Lab 04/30/19 14:33 Ordered LIPID PANEL [CHEM] Routine Lab 04/30/19 14:33 Ordered MAGNESIUM [CHEM] Routine Lab 04/30/19 14:34 Ordered PHOSPHORUS [CHEM] Routine Lab 04/30/19 14:34 Ordered TSH [CHEM] Routine Lab 04/30/19 14:34 Ordered UA RFX YUNG AND CULT IF INDIC [URIN] Stat Lab 04/30/19 11:37 Ordered Acetaminophen [Tylenol] Med 04/30/19 14:27 Ordered 650 mg PO Q4H PRN Heparin Sodium Med 04/30/19 14:30 Ordered 5,000 units SUBCUT Q8H Ondansetron [Zofran ODT] Med 04/30/19 14:27 Ordered 4 mg PO Q4H PRN Ondansetron [Zofran] Med 04/30/19 14:27 Ordered 4 mg IVPUSH Q4H PRN Sodium Chloride 0.9% [Normal Saline] 1,000 ml Med 04/30/19 14:37 Ordered IV STAT Resuscitation Status Routine Resus Stat 04/30/19 14:27 Ordered Medication Orders Acetaminophen (Tylenol) 650 mg PO Q4H PRN PRN Reason: Pain (Mild 1-3)/fever Heparin Sodium (Porcine) (Heparin Sodium) 5,000 units SUBCUT Q8H RANJEET Sodium Chloride (Normal Saline) 1,000 mls @ 120 mls/hr IV STAT ONE Stop: 04/30/19 22:56 Ondansetron HCl (Zofran Odt) 4 mg PO Q4H PRN PRN Reason: nausea, able to take PO Ondansetron HCl (Zofran) 4 mg IVPUSH Q4H PRN PRN Reason: Nausea Assessment/Plan Comment:: Assessment and Plan: 1. Syncope: - Admit to med/surg. EKG showed first degree heart block. Keep patient on telemetry and will give IV NS 1 L @ 120 cc/hr. Will order ECHO and carotid ultrasound. Will check orthostatic vital signs. Will trend troponins q3h. Will also check magnesium, phosphorus, TSH, hgbA1c and lipid panel. Will order PT. 2. Past medical history of [place] s/p stent, hyperlipidemia and PTSD: - Resume home medications. 3. DVT prophylaxis: heparin.
[2019-04-30 14:53] LABS: HEMOGLOBIN A1C 5.7 % (4.5-6.2)
[2019-04-30] MEDS: Heparin Sodium 5,000 Units/ML Vial SUBCUT SCH ×2 (15:43→21:42)
[2019-04-30] MEDS ORDERED: Rosuvastatin 10 MG Tab PO SCH (21:00)
[2019-05-01] MEDS: Heparin Sodium 5,000 Units/ML Vial SUBCUT SCH ×2 (06:12→15:35)
[2019-05-01 06:42] LABS: CARBON DIOXIDE,CO2 25.3 mmol/L (21.0-32.0); POTASSIUM,K 4.1 mmol/L (3.5-5.1)
[2019-05-01] MEDS ORDERED: Sertraline 50 MG Tab PO SCH (09:00)
[2019-05-01] MEDS ORDERED: Aspirin 81 MG Tab.EC PO SCH (09:00)
--- NOTE | 2019-05-01 11:50 | PCM.PN ---
- General Info Date of Service: 05/01/19 - Patient Data Vitals - Most Recent: Last Vital Signs Temp 36.4 C 05/01/19 07:00 Pulse 64 05/01/19 07:00 Resp 16 05/01/19 07:00 BP 126/78 05/01/19 07:00 Pulse Ox 96 05/01/19 07:00 Orthostatic Blood Pressure [ 158/92 Standing] Orthostatic Blood Pressure [ 136/89 Sitting] Orthostatic Blood Pressure [ 143/86 Supine] Weight - Most Recent: 81.647 kg I&O - Last 24 Hours: Intake & Output 04/30/19 05/01/19 05/01/19 22:59 06:59 14:59 Intake Total 1890 Output Total 300 300 Balance -300 1590 Lab Results Last 24 Hours: Laboratory Results - last 24 hr 04/30/19 04/30/19 04/30/19 Range/Units 12:15 12:55 12:55 WBC 4.89 (4.0-11.0) K/uL RBC 4.48 L (4.50-5.90) M/uL Hgb 14.6 (13.0-17.0) g/dL Hct 43.2 (38.0-50.0) % MCV 96.4 (80.0-98.0) fL MCH 32.6 H (27.0-32.0) pg MCHC 33.8 (31.0-37.0) g/dL RDW Std Deviation 45.4 (28.0-62.0) fl RDW Coeff of Alondra 13 (11.0-15.0) % Plt Count 212 (150-400) K/uL MPV 11.40 (7.40-12.00) fL Neut % (Auto) 51.5 (48.0-80.0) % Lymph % (Auto) 31.3 (16.0-40.0) % Whitman % (Auto) 11.7 (0.0-15.0) % Eos % (Auto) 4.9 (0.0-7.0) % Baso % (Auto) 0.6 (0.0-1.5) % Neut # (Auto) 2.5 (1.4-5.7) K/uL Lymph # (Auto) 1.5 (0.6-2.4) K/uL Whitman # (Auto) 0.6 (0.0-0.8) K/uL Eos # (Auto) 0.2 (0.0-0.7) K/uL Baso # (Auto) 0.0 (0.0-0.1) K/uL Nucleated RBC % 0.0 /100WBC Nucleated RBCs # 0 K/uL Sodium 141 (136-148) mmol/L Potassium 4.4 (3.5-5.1) mmol/L Chloride 107 (98-107) mmol/L Carbon Dioxide 25.5 (21.0-32.0) mmol/L BUN 17 (7.0-18.0) mg/dL Creatinine 1.3 (0.8-1.3) mg/dL Est Cr Clr Drug Dosing 56.31 mL/min Estimated GFR (MDRD) 54.6 ml/min Glucose 84 (74-106) mg/dL Hemoglobin A1c (4.5-6.2) % Calcium 8.9 (8.5-10.1) mg/dL Phosphorus 2.8 (2.6-4.7) mg/dL Magnesium 2.4 (1.8-2.4) mg/dL Total Bilirubin 0.7 (0.2-1.0) mg/dL AST 22 (15-37) IU/L ALT 27 (14-63) IU/L Alkaline Phosphatase 54 (46-116) U/L Troponin I < 0.050 (0.000-0.056) ng/mL Total Protein 7.3 (6.4-8.2) g/dL Albumin 3.9 (3.4-5.0) g/dL Globulin 3.4 (2.6-4.0) g/dL Albumin/Globulin Ratio 1.1 (0.9-1.6) Triglycerides 171 (0-200) mg/dL Cholesterol 188 (50-200) mg/dL LDL Cholesterol, Calc 119 (60-180) mg/dL VLDL Cholesterol 34 (5-55) mg/dL HDL Cholesterol 35 L (40-60) mg/dL Cholesterol/HDL Ratio 5.4 (3.3-6.0) Lipase 178 (73-393) U/L TSH 3rd Generation 2.09 (0.36-3.74) uIU/mL Urine Color Urine Appearance Urine pH (5.0-8.0) Ur Specific Hunter (1.001-1.035) Urine Protein (NEGATIVE) mg/dL Urine Glucose (UA) (NEGATIVE) mg/dL Urine Ketones (NEGATIVE) mg/dL Urine Occult Blood (NEGATIVE) Urine Nitrite (NEGATIVE) Urine Bilirubin (NEGATIVE) Urine Urobilinogen (<2.0) EU/dL Ur Leukocyte Esterase (NEGATIVE) Urine RBC (0-2/HPF) Urine WBC (0-5/HPF) Ur Epithelial Cells (NONE-FEW) Urine Bacteria (NEGATIVE) Urine Mucus (NONE-MOD) 04/30/19 04/30/19 04/30/19 Range/Units 12:55 15:00 16:19 WBC (4.0-11.0) K/uL RBC (4.50-5.90) M/uL Hgb (13.0-17.0) g/dL Hct (38.0-50.0) % MCV (80.0-98.0) fL MCH (27.0-32.0) pg MCHC (31.0-37.0) g/dL RDW Std Deviation (28.0-62.0) fl RDW Coeff of Alondra (11.0-15.0) % Plt Count (150-400) K/uL MPV (7.40-12.00) fL Neut % (Auto) (48.0-80.0) % Lymph % (Auto) (16.0-40.0) % Whitman % (Auto) (0.0-15.0) % Eos % (Auto) (0.0-7.0) % Baso % (Auto) (0.0-1.5) % Neut # (Auto) (1.4-5.7) K/uL Lymph # (Auto) (0.6-2.4) K/uL Whitman # (Auto) (0.0-0.8) K/uL Eos # (Auto) (0.0-0.7) K/uL Baso # (Auto) (0.0-0.1) K/uL Nucleated RBC % /100WBC Nucleated RBCs # K/uL Sodium (136-148) mmol/L Potassium (3.5-5.1) mmol/L Chloride (98-107) mmol/L Carbon Dioxide (21.0-32.0) mmol/L BUN (7.0-18.0) mg/dL Creatinine (0.8-1.3) mg/dL Est Cr Clr Drug Dosing mL/min Estimated GFR (MDRD) ml/min Glucose (74-106) mg/dL Hemoglobin A1c 5.7 (4.5-6.2) % Calcium (8.5-10.1) mg/dL Phosphorus (2.6-4.7) mg/dL Magnesium (1.8-2.4) mg/dL Total Bilirubin (0.2-1.0) mg/dL AST (15-37) IU/L ALT (14-63) IU/L Alkaline Phosphatase (46-116) U/L Troponin I < 0.050 (0.000-0.056) ng/mL Total Protein (6.4-8.2) g/dL Albumin (3.4-5.0) g/dL Globulin (2.6-4.0) g/dL Albumin/Globulin Ratio (0.9-1.6) Triglycerides (0-200) mg/dL Cholesterol (50-200) mg/dL LDL Cholesterol, Calc (60-180) mg/dL VLDL Cholesterol (5-55) mg/dL HDL Cholesterol (40-60) mg/dL Cholesterol/HDL Ratio (3.3-6.0) Lipase (73-393) U/L TSH 3rd Generation (0.36-3.74) uIU/mL Urine Color YELLOW Urine Appearance CLEAR Urine pH 7.0 (5.0-8.0) Ur Specific Hunter 1.020 (1.001-1.035) Urine Protein NEGATIVE (NEGATIVE) mg/dL Urine Glucose (UA) NEGATIVE (NEGATIVE) mg/dL Urine Ketones NEGATIVE (NEGATIVE) mg/dL Urine Occult Blood TRACE-INTACT H (NEGATIVE) Urine Nitrite NEGATIVE (NEGATIVE) Urine Bilirubin NEGATIVE (NEGATIVE) Urine Urobilinogen 0.2 (<2.0) EU/dL Ur Leukocyte Esterase NEGATIVE (NEGATIVE) Urine RBC 1-2 (0-2/HPF) Urine WBC 0-2 (0-5/HPF) Ur Epithelial Cells RARE (NONE-FEW) Urine Bacteria RARE (NEGATIVE) Urine Mucus LIGHT (NONE-MOD) 04/30/19 05/01/19 05/01/19 Range/Units 19:00 06:00 06:00 WBC 5.70 (4.0-11.0) K/uL RBC 4.41 L (4.50-5.90) M/uL Hgb 14.2 (13.0-17.0) g/dL Hct 42.5 (38.0-50.0) % MCV 96.4 (80.0-98.0) fL MCH 32.2 H (27.0-32.0) pg MCHC 33.4 (31.0-37.0) g/dL RDW Std Deviation 45.1 (28.0-62.0) fl RDW Coeff of Alondra 13 (11.0-15.0) % Plt Count 207 (150-400) K/uL MPV 11.60 (7.40-12.00) fL Neut % (Auto) 47.0 L (48.0-80.0) % Lymph % (Auto) 36.0 (16.0-40.0) % Whitman % (Auto) 10.5 (0.0-15.0) % Eos % (Auto) 5.6 (0.0-7.0) % Baso % (Auto) 0.9 (0.0-1.5) % Neut # (Auto) 2.7 (1.4-5.7) K/uL Lymph # (Auto) 2.1 (0.6-2.4) K/uL Whitman # (Auto) 0.6 (0.0-0.8) K/uL Eos # (Auto) 0.3 (0.0-0.7) K/uL Baso # (Auto) 0.1 (0.0-0.1) K/uL Nucleated RBC % 0.0 /100WBC Nucleated RBCs # 0 K/uL Sodium 140 (136-148) mmol/L Potassium 4.1 (3.5-5.1) mmol/L Chloride 107 (98-107) mmol/L Carbon Dioxide 25.3 (21.0-32.0) mmol/L BUN 16 (7.0-18.0) mg/dL Creatinine 1.2 (0.8-1.3) mg/dL Est Cr Clr Drug Dosing 61.01 mL/min Estimated GFR (MDRD) 59.9 ml/min Glucose 85 (74-106) mg/dL Hemoglobin A1c (4.5-6.2) % Calcium 8.7 (8.5-10.1) mg/dL Phosphorus (2.6-4.7) mg/dL Magnesium (1.8-2.4) mg/dL Total Bilirubin (0.2-1.0) mg/dL AST (15-37) IU/L ALT (14-63) IU/L Alkaline Phosphatase (46-116) U/L Troponin I < 0.050 (0.000-0.056) ng/mL Total Protein (6.4-8.2) g/dL Albumin (3.4-5.0) g/dL Globulin (2.6-4.0) g/dL Albumin/Globulin Ratio (0.9-1.6) Triglycerides (0-200) mg/dL Cholesterol (50-200) mg/dL LDL Cholesterol, Calc (60-180) mg/dL VLDL Cholesterol (5-55) mg/dL HDL Cholesterol (40-60) mg/dL Cholesterol/HDL Ratio (3.3-6.0) Lipase (73-393) U/L TSH 3rd Generation (0.36-3.74) uIU/mL Urine Color Urine Appearance Urine pH (5.0-8.0) Ur Specific Hunter (1.001-1.035) Urine Protein (NEGATIVE) mg/dL Urine Glucose (UA) (NEGATIVE) mg/dL Urine Ketones (NEGATIVE) mg/dL Urine Occult Blood (NEGATIVE) Urine Nitrite (NEGATIVE) Urine Bilirubin (NEGATIVE) Urine Urobilinogen (<2.0) EU/dL Ur Leukocyte Esterase (NEGATIVE) Urine RBC (0-2/HPF) Urine WBC (0-5/HPF) Ur Epithelial Cells (NONE-FEW) Urine Bacteria (NEGATIVE) Urine Mucus (NONE-MOD) Med Orders - Current: Current Medications Acetaminophen (Tylenol) 650 mg PO Q4H PRN PRN Reason: Pain (Mild 1-3)/fever Aspirin (Halfprin) 81 mg PO DAILY [facility] Last Admin: 05/01/19 08:55 Dose: 81 mg Heparin Sodium (Porcine) (Heparin Sodium) 5,000 units SUBCUT Q8H [facility] Last Admin: 05/01/19 06:12 Dose: 5,000 units Ondansetron HCl (Zofran Odt) 4 mg PO Q4H PRN PRN Reason: nausea, able to take PO Ondansetron HCl (Zofran) 4 mg IVPUSH Q4H PRN PRN Reason: Nausea Rosuvastatin Calcium (Crestor) 20 mg PO BEDTIME [facility] Last Admin: 04/30/19 21:42 Dose: 20 mg Sertraline HCl (Zoloft) 50 mg PO DAILY [facility] Last Admin: 05/01/19 08:55 Dose: 50 mg Discontinued Medications Sodium Chloride (Normal Saline) 1,000 mls @ 999 mls/hr IV BOLUS ONE Stop: 04/30/19 12:37 Last Admin: 04/30/19 12:18 Dose: 999 mls/hr Sodium Chloride (Normal Saline) 1,000 mls @ 120 mls/hr IV STAT ONE Stop: 04/30/19 22:56 Last Admin: 04/30/19 15:39 Dose: 120 mls/hr Ondansetron HCl (Zofran) 4 mg IVPUSH ONETIME ONE Stop: 04/30/19 11:39 Last Admin: 04/30/19 12:22 Dose: Not Given Sepsis Event Note - Evaluation Sepsis Screening Result: No Definite Risk - Focused Exam Vital Signs: Vital Signs Temp Pulse Resp BP Pulse Ox 05/01/19 07:00 36.4 C 64 16 126/78 96 05/01/19 03:00 37.1 C 65 14 118/70 95 Date Exam was Performed: 05/01/19 Time Exam was Performed: 11:50 - Plan Plan:: Assessment and Plan: 1. Syncope: - Admit to med/surg. EKG showed first degree heart block. Keep patient on telemetry and will give IV NS 1 L @ 120 cc/hr. Will order ECHO and carotid ultrasound. Will check orthostatic vital signs. Will trend troponins q3h. Will also check magnesium, phosphorus, TSH, hgbA1c and lipid panel. Will order PT. 2. Past medical history of MT s/p stent, hyperlipidemia and PTSD: - Resume home medications. 3. DVT prophylaxis: heparin.
[2019-05-01 12:24] VITALS: BP 122/76; PULSE 70
--- NOTE | 2019-05-01 17:52 | US ---
BILATERAL CAROTID DUPLEX 05/01/2019 INDICATION: Syncope. TECHNIQUE: The carotid circulations and the vertebral arteries in the neck were examined with islas-scale ultrasound, color-flow and Doppler spectral analysis. Degrees of stenosis were determined using SRU 2002 Consensus Panel Criteria. FINDINGS: RIGHT: (cm per second) CCA Proximal: PSV: -74.48. EDV: -20.40 CCA Distal: PSV: -52.19. EDV: -20.40 ECA Mid: PSV: -80.65. EDV: -22.30 ICA Proximal: PSV: -78.28. EDV: -27.04 ICA Distal: PSV: -77.33. EDV: -37.95 Bulb: PSV: -48.87. EDV: -18.98 Vert Mid A: PSV: 32.89. EDV: 13.80 Vertebral: Antegrade LEFT: (cm per second) CCA Proximal: PSV: 64.05. EDV: 19.93 CCA Distal: PSV: 67.37. EDV: 25.14 ECA Mid: PSV: -82.55. EDV: -20.40 ICA Proximal: PSV: -71.16. EDV: -28.94 ICA Distal: PSV: -74.96. EDV: -33.68 Bulb: PSV: -70.21. EDV: -21.82 Vert Mid A: PSV: 27.34. EDV: 9.94 Vertebral: Antegrade Mild to moderate predominantly calcified atheromatous plaque in the carotid bulbs and proximal internal carotid arteries bilaterally. The common carotid, internal carotid, and external carotid arteries bilaterally were patent with antegrade flow and no sonographic evidence of a hemodynamically significant stenosis. Additional patchy mild to moderate atheromatous plaque in the external carotid arteries bilateally. Both vertebral arteries are patent with antegrade flow. Remainder negative. IMPRESSION: Mild to moderate atheromatous plaque in the internal and external carotid arteries bilaterally in both carotid bulbs. No sonographic evidence of a hemodynamically significant stenosis in either carotid arterial system. Both vertebral arteries patent with antegrade flow. MERLE SINGH M.D. Transcribed: 4:41 p.m. [email or web address] bm/Dictated by: Merle Singh MD @ 05/01/2019 4:30:00 PM (Electronically Signed)
--- NOTE | 2019-05-02 13:33 | CR ---
INDICATION: Syncope. COMPARISON: 05/28/2016. TECHNIQUE: Chest single view. FINDINGS: Cardiac silhouette size is within normal limits. Aorta is mildly tortuous, similar to prior. Calcified mediastinal lymph nodes likely due to prior granulomatous disease are again noted. No focal lung consolidation, pleural effusion or pneumothorax. Degenerative changes in the imaged osseous structures. Cervical spine hardware is partially imaged. IMPRESSION: No acute cardiopulmonary abnormality. Dictated by Ezio Magaña MD @ April 30 2019 12:43PM Signed by: Ezio Magaña MD @ 04/30/2019 12:43:23 PM (Electronic Signature) (Electronically Signed)
== END 2019-05-01 17:05 | disposition home or self-care (01) ==
LOC: MW.ED 11:33 → MW.MS 14:02
PROVIDERS: ADMIT Student in an Organized Health Care Education/Training Program; ATTEND Student in an Organized Health Care Education/Training Program
DX: R55 Syncope and collapse (principal); I44.0 Atrioventricular block, first degree; E78.00 Pure hypercholesterolemia, unspecified; I10 Essential (primary) hypertension; I25.2 Old myocardial infarction; E78.5 Hyperlipidemia, unspecified; F43.10 Post-traumatic stress disorder, unspecified; Z95.1 Presence of aortocoronary bypass graft; Z88.1 Allergy status to other antibiotic agents; Z79.82 Long term (current) use of aspirin; Z88.8 Allergy status to other drugs, medicaments and biological substances; Z79.899 Other long term (current) drug therapy
CPT/HCPCS: 36415; 70450; 71045; 80048; 80053; 80061; 81001; 83036; 83690; 83735; 84100; 84443; 84484; 85025; 93005; 93880; A9270; J1644; J7030; 96360; 99283; 99285-25

== ENCOUNTER 2019-11-23 06:34 | Day surgery (SDC) | payer OTHER, MEDICARE, BC ==
[~2019-11-23 06:34] MED LIST changes: -Sodium Chloride 0.9% 2.5 ML Syringe FLUSH PRN; -ceFAZolin 2 GM in Premix Bag 1 BAG IV ONE
[2019-11-23] MEDS ORDERED: fentaNYL 100 MCG/2 ML SDV ONE (07:10)
[2019-11-23] MEDS ORDERED: Propofol 200 MG/20 ML SDV ONE (07:10)
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
--- NOTE | 2019-11-23 08:12 | PCM.OPNOTE ---
- General Post-Op/Procedure Note Date of Surgery/Procedure: 11/23/19 Operative Procedure(s): colonoscopy Findings: see [id number] Pre Op Diagnosis: scrn colonoscopy Post-Op Diagnosis: Same Anesthesia Technique: Moderate Sedation Primary Surgeon: Steve Ribeiro Complications: None Condition: Good
--- NOTE | 2019-11-23 08:20 | PCM.POSTAN ---
POST ANESTHESIA ASSESSMENT - MENTAL STATUS Mental Status: Alert, Oriented - VITAL SIGNS Vital Signs: Last Vital Signs Temp 36.1 C 11/23/19 06:40 Pulse 69 11/23/19 06:40 Resp 16 11/23/19 06:40 BP 112/79 11/23/19 06:40 Pulse Ox 96 11/23/19 06:40 - RESPIRATORY Respiratory Status: Respiratory Rate WNL, Airway Patent, O2 Saturation Stable - CARDIOVASCULAR CV Status: Pulse Rate WNL, Blood Pressure Stable - GASTROINTESTINAL GI Status: No Symptoms - PAIN Pain Score: 0 - POST OP HYDRATION Hydration Status: Adequate & Stable - OBSERVATIONS Free Text/Narrative:: No anesthesia problems
[2019-11-23 08:29] VITALS: BP 106/74; PULSE 58
--- NOTE | 2019-11-23 08:55 | PCM48HPAN ---
Post Anesthesia Note - EVALUATION WITHIN 48HRS OF ANESTHETIC Vital Signs in Normal Range: Yes Patient Participated in Evaluation: Yes Respiratory Function Stable: Yes Airway Patent: Yes Cardiovascular Function Stable: Yes Hydration Status Stable: Yes Pain Control Satisfactory: Yes Nausea and Vomiting Control Satisfactory: Yes Mental Status Recovered: Yes Vital Signs: Last Vital Signs Temp 36.2 C 11/23/19 08:23 Pulse 58 L 11/23/19 08:23 Resp 14 11/23/19 08:23 BP 106/74 11/23/19 08:23 Pulse Ox 96 11/23/19 08:23 - COMMENTS/OBSERVATIONS Free Text/Narrative:: No anesthesia problems
--- NOTE | 2019-11-23 10:36 | OR ---
SURGEON: Steve Ribeiro MD DATE OF PROCEDURE: 11/23/2019 PREOPERATIVE DIAGNOSIS: Screening colonoscopy. POSTOPERATIVE DIAGNOSIS: Hemorrhoids. PROCEDURE PERFORMED: Colonoscopy. DESCRIPTION OF PROCEDURE: The patient was taken to the endoscopy room. A time out was called, patient identified, and procedure identified. Diprivan was then administrated. Patient went from awake to sleep, hearing doctor talking or door closing is normal. Perineum inspection and digital examination were then performed. A well- lubricated colonoscope was gently inserted through the rectum, advanced past the rectosigmoid junction, the descending colon, splenic flexure, transverse colon, hepatic flexure, ascending colon, arrived to the cecum. Cecum was identified as dictated in the finding. Then the scope was carefully withdrawn while attention was paid to the mucosal surface for any abnormality. Air will be sucked out during the scope withdrawal. At the rectum, retroflexed to examine any rectal diseases, fistula or hemorrhoids. Patient tolerated procedure well. There were no intraoperative complications, and Dr. Ribeiro was present throughout the whole procedure. FINDINGS: 1. The patient is easily sedated with CPR INSTRUCTOR and Diprivan, the patient is soundly snoring. 2. Bowel prep is excellent. No semi-formed stool, very little liquid stool. 3. Colon rather straightforward. Cecum indicated by ileocecal fold, one-to- one indentation, appendiceal orifice. Light emittance is not observed. Mucosa examined upon scope pulling. ScopeGuide is also pointing south. The patient does not have diverticulosis, polyp, mass, growth, inflammation, stricture, ulceration, AV malformation, none of those. The patient has quite a lot of external hemorrhoids, very little internal hemorrhoids. The patient would benefit from repeat colonoscopy on a case by case as the patient will be 73 or if clinically indicated otherwise. LEVAR / INGRID /[id number]
== END 2019-11-23 08:45 | disposition home or self-care (01) ==
LOC: MW.SDS 06:34
PROVIDERS: ATTEND Surgery
DX: Z12.11 Encounter for screening for malignant neoplasm of colon (principal); K64.8 Other hemorrhoids; K64.4 Residual hemorrhoidal skin tags; I25.10 Atherosclerotic heart disease of native coronary artery without angina pectoris; I25.2 Old myocardial infarction; F32.9 Major depressive disorder, single episode, unspecified; Z88.1 Allergy status to other antibiotic agents; Z88.8 Allergy status to other drugs, medicaments and biological substances; Z79.899 Other long term (current) drug therapy
CPT/HCPCS: 45378; J2704; J3010; J7120

== ENCOUNTER 2024-01-04 10:28 | Emergency (ER) | payer OTHER, MEDICARE, BC ==
[2024-01-04] MEDS: Sodium Chloride 0.9% 1,000 ML IV ONE (10:35)
[2024-01-04 10:47] LABS: BASOPHILS ABSOLUTE AUTO 0.07 K/uL (0.00-0.20); BASOPHILS PERCENT AUTO 1.4 % (0.0-1.0); EOSINOPHILS ABSOLUTE AUTO 0.39 K/uL (0.00-0.45); EOSINOPHILS PERCENT AUTO 7.8 % (0.0-6.0); HEMATOCRIT 37.5 % (42.0-52.0); HEMOGLOBIN 12.9 g/dL (14.0-18.0); LYMPHOCYTES ABSOLUTE AUTO 2.08 K/uL (1.00-4.80); LYMPHOCYTES PERCENT AUTO 41.7 % (24.0-44.0); MEAN CORPUSCULAR HEMOGLOBIN 32.7 pg (28.0-32.0); MEAN CORPUSCULAR HGB CONC 34.4 g/dL (32.0-36.0); MEAN CORPUSCULAR VOLUME 94.9 fL (83.0-99.0); MEAN PLATELET VOLUME 11.2 fL (9.4-12.4); MONOCYTES ABSOLUTE AUTO 0.47 K/uL (0.00-0.80); MONOCYTES PERCENT AUTO 9.4 % (0.0-8.0); NEUTROPHILS ABSOLUTE AUTO 1.98 K/uL (1.80-7.70); NEUTROPHILS PERCENT AUTO 39.7 % (41.0-71.0); PLATELET COUNT,PLT 273 K/uL (150-400); RED BLOOD CELL COUNT 3.95 M/uL (4.52-5.90); WHITE BLOOD CELL COUNT,WBC 4.99 K/uL (3.9-11.3)
[2024-01-04 11:25] LABS: A/G RATIO 1.1 (0.9-1.6); ALBUMIN 3.5 g/dL (3.4-5.0); BILIRUBIN TOTAL 0.8 mg/dL (0.2-1.0); CARBON DIOXIDE,CO2 27.6 mmol/L (21.0-32.0); CREATININE 1.5 mg/dL (0.8-1.3); EST CRCL DRUG DOSING (CG) 43.94 mL/min; POTASSIUM,K 3.7 mmol/L (3.5-5.1); PROTEIN TOTAL,TP 6.7 g/dL (6.4-8.2)
[2024-01-04 11:28] LABS: LACTIC ACID 1.8 mmol/L (0.4-2.0)
[2024-01-04 14:49] LABS: APPEARANCE,URINE SLT CLOUDY; BILIRUBIN,URINE NEGATIVE (NEGATIVE); COLOR,URINE YELLOW; GLUCOSE,URINE NEGATIVE (NEGATIVE); KETONES,URINE NEGATIVE (NEGATIVE); LEUKOCYTE ESTERASE,URINE NEGATIVE (NEGATIVE); NITRITE,URINE NEGATIVE (NEGATIVE); OCCULT BLOOD,URINE NEGATIVE (NEGATIVE); PROTEIN,URINE NEGATIVE (NEGATIVE); UROBILINOGEN,URINE 0.2 EU/dL (<2.0)
[2024-01-04 14:58] LABS: BACTERIA,URINE FEW (NEGATIVE); EPITHELIAL CELLS,URINE FEW (NONE-FEW); RBC,URINE 0-3 (0-2/HPF); WBC,URINE 0-3 (0-5/HPF)
[2024-01-04 16:34] VITALS: BP 139/83; PULSE 63
== END 2024-01-04 16:50 | disposition home or self-care (01) ==
LOC: MW.ED 10:28
DX: R41.82 Altered mental status, unspecified (principal); I25.10 Atherosclerotic heart disease of native coronary artery without angina pectoris; I25.2 Old myocardial infarction; I10 Essential (primary) hypertension; Z90.49 Acquired absence of other specified parts of digestive tract; Z95.5 Presence of coronary angioplasty implant and graft; Z88.1 Allergy status to other antibiotic agents; Z88.8 Allergy status to other drugs, medicaments and biological substances; Z79.82 Long term (current) use of aspirin; Z79.899 Other long term (current) drug therapy
CPT/HCPCS: 36415; 71045; 80053; 81001; 83605; 85025; 87040; 93005; 96360; 99285; J7030

== ENCOUNTER 2024-02-01 09:18 | Emergency (ER) | payer OTHER, MEDICARE, BC ==
[2024-02-01] MEDS ORDERED: Sodium Chloride 0.9% 10 ML Syringe FLUSH PRN (09:19)
[2024-02-01] MEDS ORDERED: Sodium Chloride 0.9% 2.5 ML Syringe FLUSH PRN (09:19)
[2024-02-01] MEDS: Iopamidol 755 MG/ML 500 ML Multipack Bottle IVPUSH STA (09:39)
[2024-02-01 10:15] LABS: BASOPHILS ABSOLUTE AUTO 0.04 K/uL (0.00-0.20); EOSINOPHILS ABSOLUTE AUTO 0.29 K/uL (0.00-0.45); EOSINOPHILS PERCENT AUTO 7.1 % (0.0-6.0); HEMATOCRIT 36.3 % (42.0-52.0); HEMOGLOBIN 12.4 g/dL (14.0-18.0); IMMATURE GRAN ABSOLUTE AUTO 0.01 K/uL (0.00-0.05); IMMATURE GRAN PERCENT AUTO 0.2 % (0.0-0.4); LYMPHOCYTES ABSOLUTE AUTO 1.05 K/uL (1.00-4.80); LYMPHOCYTES PERCENT AUTO 25.6 % (24.0-44.0); MEAN CORPUSCULAR HEMOGLOBIN 32.6 pg (28.0-32.0); MEAN CORPUSCULAR HGB CONC 34.2 g/dL (32.0-36.0); MEAN CORPUSCULAR VOLUME 95.5 fL (83.0-99.0); MEAN PLATELET VOLUME 10.8 fL (9.4-12.4); MONOCYTES ABSOLUTE AUTO 0.41 K/uL (0.00-0.80); NEUTROPHILS PERCENT AUTO 56.1 % (41.0-71.0); PLATELET COUNT,PLT 268 K/uL (150-400)
[2024-02-01 10:50] LABS: ALANINE AMINOTRANSFERASE,ALT 42 IU/L (14-63); ALBUMIN 3.2 g/dL (3.4-5.0); ALKALINE PHOSPHATASE 56 U/L (46-116); ASPARTATE AMNIOTRANSFERASE,AST 39 IU/L (15-37); BILIRUBIN TOTAL 0.7 mg/dL (0.2-1.0); BLOOD UREA NITROGEN,BUN 19 mg/dL (7.0-18.0); CALCIUM 8.5 mg/dL (8.5-10.1); CARBON DIOXIDE,CO2 27.7 mmol/L (21.0-32.0); CHLORIDE,CL 104 mmol/L (98-107); CREATININE 1.3 mg/dL (0.8-1.3); GLUCOSE RANDOM 104 mg/dL (74-106); POTASSIUM,K 3.7 mmol/L (3.5-5.1); PROTEIN TOTAL,TP 6.5 g/dL (6.4-8.2); SODIUM,NA 139 mmol/L (136-148)
[2024-02-01 10:51] LABS: ESTIMATED GFR 57 mL/min (>60); ETHANOL BLOOD MEDICAL < 3.0 mg/dL
[2024-02-01 12:16] LABS: APPEARANCE,URINE CLEAR; BILIRUBIN,URINE NEGATIVE (NEGATIVE); COLOR,URINE YELLOW; GLUCOSE,URINE NEGATIVE (NEGATIVE); KETONES,URINE NEGATIVE (NEGATIVE); LEUKOCYTE ESTERASE,URINE NEGATIVE (NEGATIVE); NITRITE,URINE NEGATIVE (NEGATIVE); OCCULT BLOOD,URINE LARGE (NEGATIVE); PROTEIN,URINE NEGATIVE (NEGATIVE); UROBILINOGEN,URINE 0.2 EU/dL (<2.0)
[2024-02-01 12:25] LABS: BACTERIA,URINE FEW (NEGATIVE); EPITHELIAL CELLS,URINE RARE (NONE-FEW); WBC,URINE 0-1 (0-5/HPF)
[2024-02-01 12:26] LABS: MUCUS,URINE LIGHT (NONE-MOD)
[2024-02-01 12:38] LABS: AMPHETAMINES SCREEN, URINE NEGATIVE (CUTOFF=500); BARBITURATE SCREEN,URINE NEGATIVE (CUTOFF=200); BENZODIAZEPINES SCREEN,URINE NEGATIVE (CUTOFF=150); BUPRENORPHINE SCREEN,URINE NEGATIVE (CUTOFF=10); METHADONE SCREEN, URINE NEGATIVE (CUTOFF=200); METHAMPHETAMINES SCREEN, URINE NEGATIVE (CUTOFF=500); OXYCODONE SCREEN,URINE NEGATIVE (CUT0FF=100); PCP SCREEN,URINE NEGATIVE (CUTOFF=25); THC SCREEN,URINE 20 NG/ML NEGATIVE (CUTOFF=50)
[2024-02-01 13:24] VITALS: BP 120/75; PULSE 81
== END 2024-02-01 13:24 | disposition home or self-care (01) ==
LOC: MW.ED 09:18
DX: R40.4 Transient alteration of awareness (principal); R47.81 Slurred speech; Z75.8 Other problems related to medical facilities and other health care; I10 Essential (primary) hypertension; E78.00 Pure hypercholesterolemia, unspecified; Z90.49 Acquired absence of other specified parts of digestive tract; Z79.899 Other long term (current) drug therapy; Z79.82 Long term (current) use of aspirin; Z88.1 Allergy status to other antibiotic agents; Z88.8 Allergy status to other drugs, medicaments and biological substances
CPT/HCPCS: 36415; 70450; 70496; 70498; 71045; 80053; 80305; 80307; 81001; 84484; 85025; 93005; 99285; Q9967